=== PATIENT | male | born 1935 | race Caucasian/White ===

== ENCOUNTER 2018-08-25 13:46 | Outpatient (REF) | payer MEDICARE, OTHER, SELFPAY ==
[2018-08-25 20:42] LABS: Anion Gap 10.6 mmol/L (3-11); BUN 14 mg/dL (7-18); CO2 27.4 mmol/L (21.0-32.0); CREATININE 0.86 mg/dL (0.70-1.30); Calcium 9.5 mg/dL (8.5-10.1); Chloride 101 mmol/L (98-107); Glucose 126 mg/dL (70-100); Potassium 4.7 mmol/L (3.5-5.1); Sodium 139 mmol/L (136-145)
== END 2018-08-25 14:06 ==
LOC: NCHCN 13:46
PROVIDERS: Visit Provider Internal Medicine
DX: I25.10 Atherosclerotic heart disease of native coronary artery without angina pectoris (principal); Z01.818 Encounter for other preprocedural examination
CPT/HCPCS: 80048

== ENCOUNTER 2018-09-09 10:08 | Day surgery (SDC) | payer MEDICARE, OTHER, SELFPAY ==
--- NOTE | 2018-09-08 12:28 | POEE_ITS ---
History of Present Illness Chief Complaint: Progressive decreased vision, left eye Narrative: The patient is a 83-year-old male with history of progressive decreased vision in both eyes at both distance and near. On examination he was noted to have moderate bilateral nuclear and cortical cataracts with best corrected acuity of 20/40 OD, 20/40 OS, but with significant glare disability. The option of cataract surgery was offered to the patient and he wished to proceed. NOTE: The Chief Complaint, HPI, Past Medical History, Past Surgical History, Family History, Social History, Medications, and complete Ophthalmic Exam with detailed Assessment and Plan have already been documented in the patient's outpatient ophthalmic record and are not covered again in detail here. [facility] Medical History Cortical cataract of left eye (Acute) Nuclear sclerotic cataract of left eye (Acute) Social History Smoking/Tobacco Use Status: Former Tobacco Use Meds Home Medications Medication Instructions Recorded Confirmed Type famotidine 20 mg PO BID 01/19/13 03/15/15 History metformin [Fortamet] 500 mg PO BID 01/19/13 09/06/18 History clopidogrel [Plavix] 75 mg PO DAILY 01/30/13 03/15/15 History lisinopril 2.5 mg PO QAM 01/30/13 03/15/15 History metoprolol tartrate 50 mg PO BID 01/30/13 09/06/18 History nitroglycerin [Nitrostat] 0.4 mg SUBLINGUAL Q5 MIN PRN X3 03/16/15 09/06/18 Rx PRN tab aspirin 81 mg PO DAILY 09/06/18 09/06/18 History atorvastatin 20 mg PO DAILY 09/06/18 09/06/18 History finasteride 5 mg PO DAILY 09/06/18 09/06/18 History isosorbide mononitrate 30 mg PO DAILY 09/06/18 09/06/18 History Allergies Allergy/AdvReac Type Severity Reaction Status Date / Time No Known Allergies Allergy Unverified 03/15/15 22:31 Exam OCULAR EXAM:: Visual acuity at distance: Best corrected acuity is 20/40 right eye, 20/40 left eye Pupils: Pupils equal, round, and reactive without afferent pupillary defect IOP: 14 OU Extraocular Motility: Normal Pertinent Slit Lamp Findings: Significant for pupils dilating to 7 mm OU. 2+ nuclear with 2+ cortical cataract OU. Dilated Funduscopic Examination: Disc cupping is 0.2 OU with good color. The optic nerves have good perfusion and normal color. The retinal vasculature is normal without significant tortuosity or abnormality. The maculas are normal in appearance with normal contour and foveal reflex appropriate for age. The peripheral retina and vitreous are normal. BRIGHTNESS ACUITY TESTING (BAT):: Off left eye 20/40 Low: 20/60 Medium: 20/70 High: 20/70 Assessment and Plan (1) Nuclear sclerotic cataract of left eye: Current visit: No Status: Acute Assessment: Visually significant cataract, left eye. Plan: Cataract extraction with intraocular lens implantation, left eye (2) Cortical cataract of left eye: Current visit: No Status: Acute Assessment: Visually significant cataract, left eye. Plan: Cataract extraction with intraocular lens implantation, left eye Note: NOTE:: The details of the planned surgery, including the risks, indications, limitations,expectations,outcome and possible complications were explained to the patient. The patient understands the complications including, but not limited to: infection, hemorrhage, posterior dislocation of the lens or nuclear fragments which may require the intervention of a vitreoretinal surgeon, possible loss of the eye, or from anesthetic complications. The patient has been made aware of the option of not having surgery, that vision following surgery may not be equal to that prior to surgery, and that the planned surgery may not achieve the intended results. Following this discussion, which the patient appeared to understand, the patient wishes to proceed with cataract surgery with lens implantation of the affected eye to improve and maximize vision.
--- NOTE | 2018-09-09 07:25 | W.PM.DSUDISC ---
Discharge Plan Discharge Details Reason For Visit: CATARACT OS Attending Provider: Bharat Tucker Primary Care Provider: Kamron Capps Home Meds and New Rx's Prescriptions: No Action famotidine 20 MG tablet 20 mg PO BID RF: 0 metformin [Fortamet] 500 MG tablet extended release 24hr 500 mg PO BID RF: 0 lisinopril 2.5 MG tablet 2.5 mg PO QAM RF: 0 metoprolol tartrate 100 MG tablet 50 mg PO BID RF: 0 clopidogrel [Plavix] 75 MG tablet 75 mg PO DAILY RF: 0 nitroglycerin [Nitrostat] 0.4 MG tablet, sublingual 0.4 mg Sublingual Q5 MIN PRN X3 PRNRF: 0 atorvastatin 20 mg Tablet 20 mg PO DAILY RF: 0 isosorbide mononitrate 30 mg Tablet Extended Release 24 Hr 30 mg PO DAILY RF: 0 aspirin 81 mg Tablet,Chewable 81 mg PO DAILY RF: 0 finasteride 5 mg Tablet 5 mg PO DAILY RF: 0 Discharge Instructions Stand Alone Forms: Post-op Topical Cataract, Irene Medina (DSU) DS: Diagnosis Discharge Diagnosis (1) Nuclear sclerotic cataract of left eye: Status: Resolved (2) Cortical cataract of left eye: Status: Resolved (3) Status post cataract extraction and insertion of intraocular lens of left eye: Status: Chronic
--- NOTE | 2018-09-09 07:41 | W.PM.OP ---
Date of service: 09/09/18 Operative Note DATE OF PROCEDURE: 09/09/18 PRE-OP DIAGNOSIS: Cataract, left eye POST-OP DIAGNOSIS: same PROCEDURE: Cataract extraction using phacoemulsification with intraocular lens implant, left eye SURGEON: Bharat Tucker ANESTHESIA: MAC and local (sub-tenon's anesthetic infiltration) PATHOLOGY: none sent COMPLICATIONS: None Patient was transported to: same day Patient's condition: stable Implants: [employer] / [employer] Tecnis ZCB00 Indications: Progressive decreased vision due to cataract, left eye Procedure Description: CATARACT SURGERY OPERATIVE REPORT PREOPERATIVE DIAGNOSIS: Nuclear/cortical cataract,left eye POSTOPERATIVE DIAGNOSIS: Same OPERATION: Cataract extraction using phacoemulsification with posterior chamber intraocular lens implant, left eye. IOL: IOL Pig Lead Melter Helper/Model: [employer] / ANTONELLA Tecnis ZCB00 IOL Power: + 21.50 diopters IOL Serial Number: [id number] Optic Diameter: 6.0mm Haptic/Overall Diameter: 13.0mm PHACO INFO: [employer] Vision System with OZil and Active [employer]uidics Cumulative Dispersed Energy (CDE): 11.73 seconds SURGEON: Bharat Tucker MD, ALLI ANESTHESIA: Monitored Anesthesia Care (MAC), with local sub-tenon's anesthetic infiltration COMPLICATIONS: None SPECIMENS: None INDICATIONS FOR PROCEDURE: The patient is an 83-year-old male with history of progressive decreased vision in both eyes secondary to the development of bilateral nuclear and cortical cataract. The option of cataract surgery was offered to the patient and he wished to proceed. PROCEDURE: The correct surgical eye was identified and marked as the left eye and the pupil was dilated in the preoperative area using mydriatics, cycloplegics, and NSAIDS (except in aspirin allergic patients). The dilated pupil size was 7.0 mm. The patient elected to proceed without oral sedation. The patient was brought to the operating room where cardiopulmonary monitoring was instituted and surgical time-out was performed, confirming the correct operative eye and IOL power. Topical anesthesia was administered and ophthalmic povidone-iodine 5% was instilled into the conjunctival fornices. Lidocaine gel was applied to the cornea and the erik-ocular area was prepped with Betadine 10% solution and draped in the usual sterile fashion for intraocular surgery. Steri-strips were used to cover the lashes and lid margins and an adhesive eye drape was placed. Care was taken to isolate the lashes and lid margins under the Steri-strips and adhesive eye drape. A lid speculum was placed between the lids of the operative eye and the Malissa-Zaid operating microscope was maneuvered into position. Marissa scissors were then used to make a conjunctival buttonhole approximately 6mm posterior to the limbus in the inferonasal quadrant. Blunt dissection was carried out to expose bare sclera, and a blunt-tipped sub-tenon?s anesthesia cannula was introduced and passed posteriorly along the globe where non-preserved plain lidocaine was injected into posterior sub-Tenon?s space. A sideport knife was used to make a paracentesis port at the 12:00 postion and the anterior chamber was filled with Healon GV. A 2.4mm keratome knife was used to create a half-thickness groove at the limbus and then to construct a three-plane near-clear corneal tunnel extending 2.0mm into clear cornea at the 3:00 position. A flap was raised on the anterior capsule and capsulorhexis forceps were used to complete a continuous curvilinear capsulorhexis of 5.0 mm. Balanced salt solution was then used to perform cortical cleaving hydrodissection and nuclear hydrodelineation until the lens could be freely rotated within the capsular bag. The lens nucleus was then disassembled and removed within the capsular bag and iris plane using phacoemulsification. Residual cortical material was removed using the 45-degree angled silicone I/A tip with 0.3mm port. The posterior capsule was carefully polished to remove as much residual lens epithelial cells as safely possible. The capsular bag was then inflated and the anterior chamber deepened with viscoelastic. The lens implant described above was inserted into the capsular bag using the ANTONELLA [place] Injector. A Kuglen hook was used to dial the IOL into position. Residual viscoelastic was then removed first from posterior to the IOL, then from the anterior chamber using the I/A handpiece. The lens implant was noted to center nicely within the capsular bag. The incisions were stromally hydrated, and the anterior chamber was reformed using BSS. Then 0.4cc of moxifloxacin 1.5mg/ml were injected into the capsular bag and anterior chamber. The incisions were checked with a Weck spear and found to be secure. Several drops of ophthalmic povidone-iodine 5% were then applied to the eye followed by two drops of Imprimis combination moxifloxacin/dexamethasone solution. The drapes were removed and a clear plastic protective eye shield was placed over the eye. The patient was then returned to Same Day Surgery in stable condition.
[2018-09-09 11:16] VITALS: BP 137/71; PULSE 72; RESP 20; TEMP 35; O2SAT 99
[2018-09-09] MEDS: Lidocaine 2% Jelly 6 ML SYR (13:27)
[2018-09-09] MEDS: Povidone-Iodine Ophth 30 ML BTL (13:31)
[2018-09-09] MEDS: Lidocaine 1% Pres-Free 5 ML VIAL (13:31)
[2018-09-09] MEDS: Balanced Salt Soln.-PLUS 500 ML BAG (13:31)
== END 2018-09-09 13:15 | disposition home or self-care (01) ==
LOC: SUR 10:09
PROVIDERS: PCP Internal Medicine; Visit Provider Ophthalmology
PROC: (CPT 66984; principal; 2018-09-09 13:00)
DX: H25.812 Combined forms of age-related cataract, left eye (principal); E11.9 Type 2 diabetes mellitus without complications; Z79.84 Long term (current) use of oral hypoglycemic drugs; K21.9 Gastro-esophageal reflux disease without esophagitis
CPT/HCPCS: 66984; V2632

== ENCOUNTER 2018-09-23 08:59 | Day surgery (SDC) | payer MEDICARE, OTHER, SELFPAY ==
--- NOTE | 2018-09-22 13:11 | W.PIPPEYE ---
History of Present Illness Chief Complaint: Progressive decreased vision, right eye Narrative: The patient is an 83-year-old male with history of diminished visual acuity and both eyes at both distance and near. On examination he was noted to have moderate bilateral nuclear and cortical cataracts with best corrected visual acuity of 20/40 OU and significant glare disability. He underwent cataract surgery in the left eye on 09/09/18, and now has best corrected vision of 20/20 in the left eye. He now presents for cataract surgery in the right eye. NOTE: The Chief Complaint, HPI, Past Medical History, Past Surgical History, Family History, Social History, Medications, and complete Ophthalmic Exam with detailed Assessment and Plan have already been documented in the patient's outpatient ophthalmic record and are not covered again in detail here. [facility] Medical History Cortical cataract of right eye (Acute) Nuclear sclerotic cataract of right eye (Acute) Cortical cataract of left eye (Resolved) Nuclear sclerotic cataract of left eye (Resolved) Social History Smoking/Tobacco Use Status: Former Tobacco Use Surgical History Status post cataract extraction and insertion of intraocular lens of left eye (Chronic 09/09/18) Meds Home Medications Medication Instructions Recorded Confirmed Type famotidine 20 mg PO BID 01/19/13 03/15/15 History metformin [Fortamet] 500 mg PO BID 01/19/13 09/09/18 History clopidogrel [Plavix] 75 mg PO DAILY 01/30/13 03/15/15 History lisinopril 2.5 mg PO QAM 01/30/13 03/15/15 History metoprolol tartrate 50 mg PO BID 01/30/13 09/09/18 History nitroglycerin [Nitrostat] 0.4 mg SUBLINGUAL Q5 MIN PRN X3 03/16/15 09/09/18 Rx PRN tab aspirin 81 mg PO DAILY 09/06/18 09/09/18 History atorvastatin 20 mg PO DAILY 09/06/18 09/09/18 History finasteride 5 mg PO DAILY 09/06/18 09/09/18 History isosorbide mononitrate 30 mg PO DAILY 09/06/18 09/09/18 History Allergies Allergy/AdvReac Type Severity Reaction Status Date / Time citalopram [From Celexa] Allergy Mild Verified 09/09/18 11:12 Sulfa (Sulfonamide Allergy Mild Verified 09/09/18 11:12 Antibiotics) Exam OCULAR EXAM:: Visual acuity at distance: Best corrected to 20/40 right eye, 20/20 left eye Pupils: Pupils equal, round, and reactive without afferent pupillary defect IOP: 14 OU Extraocular Motility: Normal Pertinent Slit Lamp Findings: Significant for pupils dilating to 7 mm OU. 2+ nuclear/cortical cataract, right eye. Well-positioned PCIOL, left eye with clear posterior capsule. Dilated Funduscopic Examination: Disc cupping is 0.2 OU with good color. The optic nerves have good perfusion and normal color. The retinal vasculature is normal without significant tortuosity or abnormality. The maculas are normal in appearance with normal contour and foveal reflex appropriate for age. The peripheral retina and vitreous are normal. BRIGHTNESS ACUITY TESTING (BAT):: Off right eye 20/40 Low: 20/60 Medium: 20/70 High: 20/100 Assessment and Plan (1) Nuclear sclerotic cataract of right eye: Current visit: No Status: Acute Assessment: Visually significant cataract, right eye. Plan: Cataract extraction with intraocular lens implantation, right eye (2) Cortical cataract of right eye: Current visit: No Status: Acute Assessment: Visually significant cataract, right eye. Plan: Cataract extraction with intraocular lens implantation, right eye Note: NOTE:: The details of the planned surgery, including the risks, indications,limitations,expectations,outcome and possible complications were explained to the patient. The patient understands the complications including, but not limited to: infection, hemorrhage, posterior dislocation of the lens or nuclear fragments which may require the intervention of a vitreoretinal surgeon, possible loss of the eye, or from anesthetic complications. The patient has been made aware of the option of not having surgery, that vision following surgery may not be equal to that prior to surgery, and that the planned surgery may not achieve the intended results. Following this discussion, which the patient appeared to understand, the patient wishes to proceed with cataract surgery with lens implantation of the affected eye to improve and maximize vision.
--- NOTE | 2018-09-22 13:16 | POEE_ITS ---
History of Present Illness Chief Complaint: Progressive decreased vision, right eye Narrative: The patient is an 83-year-old male with history of diminished visual acuity and both eyes at both distance and near. On examination he was noted to have moderate bilateral nuclear and cortical cataracts with best corrected visual acuity of 20/40 OU and significant glare disability. He underwent cataract surgery in the left eye on 09/09/18, and now has best corrected vision of 20/20 in the left eye. He now presents for cataract surgery in the right eye. NOTE: The Chief Complaint, HPI, Past Medical History, Past Surgical History, Family History, Social History, Medications, and complete Ophthalmic Exam with detailed Assessment and Plan have already been documented in the patient's outpatient ophthalmic record and are not covered again in detail here. [facility] Medical History Cortical cataract of right eye (Acute) Nuclear sclerotic cataract of right eye (Acute) Cortical cataract of left eye (Resolved) Nuclear sclerotic cataract of left eye (Resolved) Social History Smoking/Tobacco Use Status: Former Tobacco Use Surgical History Status post cataract extraction and insertion of intraocular lens of left eye ( Chronic 09/09/18) Meds Home Medications Medication Instructions Recorded Confirmed Type famotidine 20 mg PO BID 01/19/13 03/15/15 History metformin [Fortamet] 500 mg PO BID 01/19/13 09/09/18 History clopidogrel [Plavix] 75 mg PO DAILY 01/30/13 03/15/15 History lisinopril 2.5 mg PO QAM 01/30/13 03/15/15 History metoprolol tartrate 50 mg PO BID 01/30/13 09/09/18 History nitroglycerin [Nitrostat] 0.4 mg SUBLINGUAL Q5 MIN PRN X3 03/16/15 09/09/18 Rx PRN tab aspirin 81 mg PO DAILY 09/06/18 09/09/18 History atorvastatin 20 mg PO DAILY 09/06/18 09/09/18 History finasteride 5 mg PO DAILY 09/06/18 09/09/18 History isosorbide mononitrate 30 mg PO DAILY 09/06/18 09/09/18 History Allergies Allergy/AdvReac Type Severity Reaction Status Date / Time citalopram [From Celexa] Allergy Mild Verified 09/09/18 11:12 Sulfa (Sulfonamide Allergy Mild Verified 09/09/18 11:12 Antibiotics) Exam OCULAR EXAM:: Visual acuity at distance: Best corrected to 20/40 right eye, 20/ 20 left eye Pupils: Pupils equal, round, and reactive without afferent pupillary defect IOP: 14 OU Extraocular Motility: Normal Pertinent Slit Lamp Findings: Significant for pupils dilating to 7 mm OU. 2+ nuclear/cortical cataract, right eye. Well-positioned PCIOL, left eye with clear posterior capsule. Dilated Funduscopic Examination: Disc cupping is 0.2 OU with good color. The optic nerves have good perfusion and normal color. The retinal vasculature is normal without significant tortuosity or abnormality. The maculas are normal in appearance with normal contour and foveal reflex appropriate for age. The peripheral retina and vitreous are normal. BRIGHTNESS ACUITY TESTING (BAT):: Off right eye 20/40 Low: 20/60 Medium: 20/70 High: 20/100 Assessment and Plan (1) Nuclear sclerotic cataract of right eye: Current visit: No Status: Acute Assessment: Visually significant cataract, right eye. Plan: Cataract extraction with intraocular lens implantation, right eye (2) Cortical cataract of right eye: Current visit: No Status: Acute Assessment: Visually significant cataract, right eye. Plan: Cataract extraction with intraocular lens implantation, right eye Note: NOTE:: The details of the planned surgery, including the risks, indications, limitations,expectations,outcome and possible complications were explained to the patient. The patient understands the complications including, but not limited to: infection, hemorrhage, posterior dislocation of the lens or nuclear fragments which may require the intervention of a vitreoretinal surgeon, possible loss of the eye, or from anesthetic complications. The patient has been made aware of the option of not having surgery, that vision following surgery may not be equal to that prior to surgery, and that the planned surgery may not achieve the intended results. Following this discussion, which the patient appeared to understand, the patient wishes to proceed with cataract surgery with lens implantation of the affected eye to improve and maximize vision.
[2018-09-23 09:12] VITALS: BP 120/68; PULSE 69; RESP 16; TEMP 36.2; O2SAT 97
[2018-09-23] MEDS: Tetracaine 0.5% 4 ML BTL OD ×4 (09:36→10:17)
[2018-09-23] MEDS: Tropicam./Phenyleph. (1/2.5%) 5 ML BTL ×3 (09:37→09:50)
[2018-09-23] MEDS: Lidocaine 2% Jelly 6 ML SYR (10:17)
[2018-09-23] MEDS: Lidocaine 1% Pres-Free 5 ML VIAL (10:21)
[2018-09-23] MEDS: Balanced Salt Soln.-PLUS 500 ML BAG (10:21)
[2018-09-23] MEDS: Povidone-Iodine Ophth 30 ML BTL (10:38)
--- NOTE | 2018-09-23 10:44 | W.PM.DSUDISC ---
Discharge Plan Discharge Details Reason For Visit: CATARACT OD Attending Provider: Bharat Tucker Primary Care Provider: Kamron Capps Home Meds and New Rx's Prescriptions: No Action famotidine 20 MG tablet 20 mg PO BID RF: 0 metformin [Fortamet] 500 MG tablet extended release 24hr 500 mg PO BID RF: 0 lisinopril 2.5 MG tablet 2.5 mg PO QAM RF: 0 metoprolol tartrate 100 MG tablet 50 mg PO BID RF: 0 clopidogrel [Plavix] 75 MG tablet 75 mg PO DAILY RF: 0 nitroglycerin [Nitrostat] 0.4 MG tablet, sublingual 0.4 mg Sublingual Q5 MIN PRN X3 PRNRF: 0 atorvastatin 20 mg Tablet 20 mg PO DAILY RF: 0 isosorbide mononitrate 30 mg Tablet Extended Release 24 Hr 30 mg PO DAILY RF: 0 aspirin 81 mg Tablet,Chewable 81 mg PO DAILY RF: 0 finasteride 5 mg Tablet 5 mg PO DAILY RF: 0 Discharge Instructions Stand Alone Forms: Post-op Topical Cataract, Irene Medina (DSU) DS: Diagnosis Discharge Diagnosis (1) Nuclear sclerotic cataract of right eye: Status: Resolved (2) Cortical cataract of right eye: Status: Resolved (3) Status post cataract extraction and insertion of intraocular lens of right eye: Status: Acute
--- NOTE | 2018-09-23 10:45 | W.PM.OP ---
Date of service: 09/23/18 Time of Service: 10:45 Operative Note DATE OF PROCEDURE: 09/23/18 PRE-OP DIAGNOSIS: Cataract, right eye POST-OP DIAGNOSIS: same SURGEON: Bharat Tucker ANESTHESIA: MAC and local (sub-tenon's anesthetic infiltration) PATHOLOGY: none sent COMPLICATIONS: None Patient was transported to: same day Patient's condition: stable Implants: Torrey [employer] / [employer] Tecnis ZCB00 Indications: Progressive decreased vision due to cataract, right eye Procedure Description: CATARACT SURGERY OPERATIVE REPORT PREOPERATIVE DIAGNOSIS: Nuclear/cortical cataract, right eye POSTOPERATIVE DIAGNOSIS: Same OPERATION: Cataract extraction using phacoemulsification with posterior chamber intraocular lens implant, right eye. 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 The option of cataract surgery was offered to the patient and he wished to proceed. He has already undergone cataract surgery in his left eye and is doing well postoperatively. He now presents for cataract surgery in the right eye PROCEDURE: The correct surgical eye was identified and marked as the right eye and the pupil was dilated in the preoperative area using mydriatics and cycloplegics. The dilated pupil size was 7.0 mm. He elected to proceed with surgery with no oral sedation. The patient was brought to the operating room where cardiopulmonary monitoring was instituted and surgical time-out was performed, confirming the correct operative eye and IOL power. Topical anesthesia was administered and ophthalmic povidone-iodine 5% was instilled into the conjunctival fornices. Lidocaine gel was applied to the cornea and the erik-ocular area was prepped with Betadine 10% solution and draped in the usual sterile fashion for intraocular surgery. Steri-strips were used to cover the lashes and lid margins and an adhesive eye drape was placed. Care was taken to isolate the lashes and lid margins under the Steri-strips and adhesive eye drape. A lid speculum was placed between the lids of the operative eye and the Malissa-Zaid operating microscope was maneuvered into position. Marissa scissors were then used to make a conjunctival buttonhole approximately 6mm posterior to the limbus in the inferonasal quadrant. Blunt dissection was carried out to expose bare sclera, and a blunt-tipped sub-tenon?s anesthesia cannula was introduced and passed posteriorly along the globe where non-preserved plain lidocaine was injected into posterior sub-Tenon?s space. A sideport knife was used to make a paracentesis port at the 7:00 postion and the anterior chamber was filled with Healon GV. A 2.4mm keratome knife was used to create a half-thickness groove at the limbus and then to construct a three-plane near-clear corneal tunnel extending 2.0mm into clear cornea at the 10:00 position. A flap was raised on the anterior capsule and capsulorhexis forceps were used to complete a continuous curvilinear capsulorhexis of five-point mm. Balanced salt solution was then used to perform cortical cleaving hydrodissection and nuclear hydrodelineation until the lens could be freely rotated within the capsular bag. The lens nucleus was then disassembled and removed within the capsular bag and iris plane using phacoemulsification. Residual cortical material was removed using the 45-degree angled silicone I/A tip with 0.3mm port. The posterior capsule was carefully polished to remove as much residual lens epithelial cells as safely possible. The capsular bag was then inflated and the anterior chamber deepened with viscoelastic. The lens implant described above was inserted into the capsular bag using the ANTONELLA [place] Injector. A Kuglen hook was used to dial the IOL into position. Residual viscoelastic was then removed first from posterior to the IOL, then from the anterior chamber using the I/A handpiece. The lens implant was noted to center nicely within the capsular bag. The incisions were stromally hydrated, and the anterior chamber was reformed using BSS. Then 0.4cc of moxifloxacin 1.5mg/ml were injected into the capsular bag and anterior chamber. The incisions were checked with a Weck spear and found to be secure. Several drops of ophthalmic povidone-iodine 5% were then applied to the eye followed by two drops of Imprimis combination moxifloxacin/dexamethasone solution. The drapes were removed and a clear plastic protective eye shield was placed over the eye. The patient was then returned to Same Day Surgery in stable condition.
--- NOTE | 2018-09-23 10:48 | ROE_ITS ---
Date of service: 09/23/18 Time of Service: 10:45 Operative Note DATE OF PROCEDURE: 09/23/18 PRE-OP DIAGNOSIS: Cataract, right eye POST-OP DIAGNOSIS: same SURGEON: Bharat Tucker ANESTHESIA: MAC and local (sub-tenon's anesthetic infiltration) PATHOLOGY: none sent COMPLICATIONS: None Patient was transported to: same day Patient's condition: stable Implants: Torrey and [employer] / [employer] Tecnis ZCB00 Indications: Progressive decreased vision due to cataract, right eye Procedure Description: CATARACT SURGERY OPERATIVE REPORT PREOPERATIVE DIAGNOSIS: Nuclear/cortical cataract, right eye POSTOPERATIVE DIAGNOSIS: Same OPERATION: Cataract extraction using phacoemulsification with posterior chamber intraocular lens implant, right eye. 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 The option of cataract surgery was offered to the patient and he wished to proceed. He has already undergone cataract surgery in his left eye and is doing well postoperatively. He now presents for cataract surgery in the right eye PROCEDURE: The correct surgical eye was identified and marked as the right eye and the pupil was dilated in the preoperative area using mydriatics and cycloplegics. The dilated pupil size was 7.0 mm. He elected to proceed with surgery with no oral sedation. The patient was brought to the operating room where cardiopulmonary monitoring was instituted and surgical time-out was performed, confirming the correct operative eye and IOL power. Topical anesthesia was administered and ophthalmic povidone-iodine 5% was instilled into the conjunctival fornices. Lidocaine gel was applied to the cornea and the erik-ocular area was prepped with Betadine 10% solution and draped in the usual sterile fashion for intraocular surgery. Steri-strips were used to cover the lashes and lid margins and an adhesive eye drape was placed. Care was taken to isolate the lashes and lid margins under the Steri-strips and adhesive eye drape. A lid speculum was placed between the lids of the operative eye and the Malissa-Zaid operating microscope was maneuvered into position. Marissa scissors were then used to make a conjunctival buttonhole approximately 6mm posterior to the limbus in the inferonasal quadrant. Blunt dissection was carried out to expose bare sclera, and a blunt-tipped sub-tenon? s anesthesia cannula was introduced and passed posteriorly along the globe where non-preserved plain lidocaine was injected into posterior sub-Tenon?s space. A sideport knife was used to make a paracentesis port at the 7:00 postion and the anterior chamber was filled with Healon GV. A 2.4mm keratome knife was used to create a half-thickness groove at the limbus and then to construct a three-plane near-clear corneal tunnel extending 2.0mm into clear cornea at the 10:00 position. A flap was raised on the anterior capsule and capsulorhexis forceps were used to complete a continuous curvilinear capsulorhexis of five-point mm. Balanced salt solution was then used to perform cortical cleaving hydrodissection and nuclear hydrodelineation until the lens could be freely rotated within the capsular bag. The lens nucleus was then disassembled and removed within the capsular bag and iris plane using phacoemulsification. Residual cortical material was removed using the 45-degree angled silicone I/A tip with 0.3mm port. The posterior capsule was carefully polished to remove as much residual lens epithelial cells as safely possible. The capsular bag was then inflated and the anterior chamber deepened with viscoelastic. The lens implant described above was inserted into the capsular bag using the ANTONELLA [place] Injector. A Kuglen hook was used to dial the IOL into position. Residual viscoelastic was then removed first from posterior to the IOL, then from the anterior chamber using the I/A handpiece. The lens implant was noted to center nicely within the capsular bag. The incisions were stromally hydrated , and the anterior chamber was reformed using BSS. Then 0.4cc of moxifloxacin 1.5mg/ml were injected into the capsular bag and anterior chamber. The incisions were checked with a Weck spear and found to be secure. Several drops of ophthalmic povidone-iodine 5% were then applied to the eye followed by two drops of Imprimis combination moxifloxacin/dexamethasone solution. The drapes were removed and a clear plastic protective eye shield was placed over the eye. The patient was then returned to Same Day Surgery in stable condition.
[2018-09-23 12:11] VITALS: BP 114/60; PULSE 65; RESP 18; TEMP 36.7; O2SAT 98
== END 2018-09-23 11:15 | disposition home or self-care (01) ==
LOC: SUR 08:59
PROVIDERS: PCP Internal Medicine; Visit Provider Ophthalmology
PROC: (CPT 66984; principal; 2018-09-23 11:30)
DX: H25.811 Combined forms of age-related cataract, right eye (principal); Z98.42 Cataract extraction status, left eye; Z96.1 Presence of intraocular lens; E11.9 Type 2 diabetes mellitus without complications; Z79.84 Long term (current) use of oral hypoglycemic drugs; K21.9 Gastro-esophageal reflux disease without esophagitis
CPT/HCPCS: 66984; V2632

== ENCOUNTER 2019-08-28 15:53 | Outpatient (REF) | payer MEDICARE, OTHER, SELFPAY ==
[2019-08-28 22:18] LABS: Anion Gap 11.6 mmol/L (3-11); BUN 21 mg/dL (7-18); CO2 27.4 mmol/L (21.0-32.0); CREATININE 1.05 mg/dL (0.70-1.30); Calcium 9.6 mg/dL (8.5-10.1); Chloride 103 mmol/L (98-107); Glucose 108 mg/dL (70-100); Potassium 4.6 mmol/L (3.5-5.1); Sodium 142 mmol/L (136-145)
== END 2019-08-28 16:13 ==
LOC: NCHCN 15:53
PROVIDERS: PCP Internal Medicine; Visit Provider Internal Medicine
DX: I25.10 Atherosclerotic heart disease of native coronary artery without angina pectoris (principal)
CPT/HCPCS: 80048

== ENCOUNTER 2020-07-18 11:16 | Outpatient (REF) | payer MEDICARE, OTHER, SELFPAY ==
[2020-07-18 20:47] LABS: BUN 19 mg/dL (7-18); CREATININE 1.22 mg/dL (0.70-1.30); Estimated GFR 56.59 (mL/min/1.73m2)
== END 2020-07-18 11:36 ==
LOC: NCHCN 11:16
PROVIDERS: PCP Internal Medicine; Visit Provider Internal Medicine
DX: E11.9 Type 2 diabetes mellitus without complications (principal); Z13.89 Encounter for screening for other disorder
CPT/HCPCS: 84520; 82565

== ENCOUNTER 2021-07-24 14:16 | Outpatient (REF) | payer MEDICARE, OTHER, SELFPAY ==
[2021-07-24 13:58] LABS: Anion Gap 11.8 mmol/L (3-11); BUN 14 mg/dL (7-18); CO2 25.2 mmol/L (21.0-32.0); CREATININE 1.1 mg/dL (0.70-1.30); Calcium 9.2 mg/dL (8.5-10.1); Chloride 105 mmol/L (98-107); Glucose 86 mg/dL (74-106); Potassium 4.5 mmol/L (3.5-5.1); Sodium 142 mmol/L (136-145)
== END 2021-07-24 14:17 | disposition home or self-care (01) ==
LOC: NCHCN 14:16
PROVIDERS: PCP Internal Medicine; Referring Provider Internal Medicine; Visit Provider Internal Medicine
DX: E11.9 Type 2 diabetes mellitus without complications (principal); F32.9 Major depressive disorder, single episode, unspecified
CPT/HCPCS: 80048

== ENCOUNTER 2021-09-19 11:42 | Emergency (ER) | payer MEDICARE, OTHER, SELFPAY ==
[2021-09-19] VITALS (48 sets, daily range): BP systolic 115–157; BP diastolic 45–110; PULSE 58–77; RESP 11–27; O2SAT 92–99
--- NOTE | 2021-09-19 11:45 | RT.EKG_ITS ---
APPROVED REPORT Exam: Resting ECG Reason for Exam: dizziness Patient Location: E HR:66 bpm ECG Measurements Heart Rate 66 AXIS CO 51 P 0 QRSd 167 QRS -52 QT 481 T 117 QTc 505 Conclusion Atrial-ventricular dual-paced complexes...other complexes also detected AV paced rhythm with frequent comanche complex, normal axis, no STEMI, nondiagnostic EKG
--- NOTE | 2021-09-19 12:15 | DI.CT_ITS ---
Exam(s) CT HEAD WO EXAM: CT HEAD WO CLINICAL HISTORY: headache. TECHNIQUE: Imaging Protocol: Axial computed tomography images with coronal and sagittal reformatted images were created and reviewed COMPARISON: CT HEAD WITHOUT CONTRAST from 11/19/2015 FINDINGS: The ventricular system is normal in appearance. No evidence of acute intracranial hemorrhage, mass effect, or midline shift. The orbital structures are unremarkable. The temporal bone structures appear intact. Calvarium: Normal. Visualized Paranasal sinuses/Mastoids: Clear. IMPRESSION: No evidence of acute intracranial process. RADIATION DOSE DELIVERED: 840.86mGy.cm Total DLP 840.86mGy.cm Total DLP CTDIvol DATA REPOSITORY: All CT scans at this facility are submitted to the National Radiology Data Registry (NRDR) Dose Index Registry (DIR) with the [employer] (A[employer]). RADIATION OPTIMIZATION: All CT scans at this facility use at least one of these dose optimization te chniques: automated exposure control; mA and/or kV adjustment per patient size (includes targeted exa ms where dose is matched to clinical indication); or iterative reconstruction.
[2021-09-19] MEDS: Normal Saline 500 ML IV ×2 (12:46→15:39)
[2021-09-19 12:53] LABS: Abs Immature Grans 0.05 10^3/uL (0.0-0.06); Absolute Basophil Count 0.07 10^3/uL (0.0-0.2); Absolute Eosinophil Count 0.11 10^3/uL (0.0-0.7); Absolute Lymphocyte Count 1.63 10^3/uL (1.2-3.4); Absolute Monocyte Count 0.38 10^3/uL (0.1-0.8); Absolute Neutrophil Count 7.77 10^3/uL (1.2-6.7); Basophils % 0.7; Eosinophils % 1.1; HCT 41.1 % (40.0-50.0); HGB 13.6 g/dL (13.5-17.5); Immature Grans % 0.5; Lymphocytes % 16.3; MCH 29.6 pg (27.0-33.0); MCHC 33.1 % (32.0-36.0); MCV 89.3 fL (80-95); MPV 11.5 fL (8.0-11.0); Monocytes % 3.8; Neutrophils % 77.6; Nucleated RBC 0 %; Platelet Count 208 10^3/uL (130-400); RDW 13.3 % (11.8-14.1); WBC 10.01 10^3/uL (4.4-10.8)
[2021-09-19 13:24] LABS: ALT 17 U/L (16-63); AST 18 U/L (15-37); Albumin 4.1 g/dL (3.4-5.0); Alkaline Phosphatase 66 U/L (46-116); Anion Gap 9.6 mmol/L (3-11); BUN 19 mg/dL (7-18); Bilirubin, Total 1.2 mg/dL (0.2-1.0); CO2 27.4 mmol/L (21.0-32.0); CREATININE 1.1 mg/dL (0.70-1.30); Calcium 9.4 mg/dL (8.5-10.1); Chloride 103 mmol/L (98-107); Glucose 148 mg/dL (74-106); Potassium 3.9 mmol/L (3.5-5.1); Sodium 140 mmol/L (136-145); Total Protein 7.6 g/dL (6.4-8.2)
--- NOTE | 2021-09-19 15:00 | DI.CT_ITS ---
Exam(s) CT BRAIN NECK CTA EXAM: CT BRAIN NECK CTA CLINICAL HISTORY: headache. TECHNIQUE: Imaging Protocol: Axial CT angiography was performed with multi-slice acquisition and mu lti-planar and/or 3D reconstructions. CONTRAST MATERIAL: Intravenous: Omnipaque 350 Contrast volume:85 mL COMPARISON: CT HEAD WITHOUT CONTRAST from 11/19/2015 CT HEAD WITHOUT CONTRAST from 11/19/2015 FINDINGS: CT Head W/O and W: Ventricles and Extra axial spaces: Normal in size and morphology for the patient's age. Hemorrhage: None. Cerebral parenchyma: No acute territorial infarct. There are areas of decreased attenuation in the w kevin matter consistent with small vessel ischemic disease. Midline shift: None. Brainstem/Cerebellum: Normal. Calvarium: Normal. Visualized Paranasal sinuses/Mastoids: Clear. Soft Tissues: Unremarkable. Enhancement: Unremarkable. CTA Neck W: Common Carotid: Right: No dissection, occlusion or significant stenosis. Atherosclerosis distally. Left: No dissection, occlusion or significant stenosis. Atherosclerosis distally. External Carotid: Right: No occlusion or significant stenosis. Proximal atherosclerosis. Left: No occlusion or significant stenosis. Proximal atherosclerosis. Internal Carotid: Right: No dissection, occlusion or significant stenosis. Mild proximal atherosclerosis. Left: No dissection or occlusion. Proximal atherosclerosis with mild resultant stenosis. Vertebral Artery: Right: No dissection, occlusion or significant stenosis. Left: No dissection, occlusion or significant stenosis. Mild atherosclerosis proximally. Lung Apices: Normal. Coronary artery calcification. Atherosclerosis of the thoracic aorta. Bones: Within normal limits for the patient's age. Soft Tissues: Normal. Thyroid gland: Unremarkable. CTA Brain W: Internal Carotid Arteries: Atherosclerosis throughout but no significant stenosis. No evidence of an eurysm or occlusion. Anterior Cerebral Arteries: Right: No aneurysm, occlusion or significant stenosis. Left: No aneurysm, occlusion or significant stenosis. Middle Cerebral Arteries: Right: No aneurysm, occlusion or significant stenosis. Left: No aneurysm, occlusion or significant stenosis. Posterior cerebral Arteries: Right: No aneurysm, occlusion or significant stenosis. Left: No aneurysm, occlusion or significant stenosis. The left posterior cerebral artery arises from the PCOM which is a normal variant. Vertebral Arteries: Right: No aneurysm, occlusion or significant stenosis. Left: No aneurysm, occlusion or significant stenosis. Basilar Artery: No aneurysm, occlusion or significant stenosis. IMPRESSION: 1. No large vessel occlusion or significant stenosis on the CT angiography of the head. 2. No acute intracranial process. 3. No occlusion or significant stenosis on the CT angiography of the neck. RADIATION DOSE DELIVERED: 2,316.46mGy.cm Total DLP DATA REPOSITORY: All CT scans at this facility are submitted to the National Radiology Data Registry (NRDR) Dose Index Registry (DIR) with the [employer] (ACR). RADIATION OPTIMIZATION: All CT scans at this facility use at least one of these dose optimization te chniques: automated exposure control; mA and/or kV adjustment per patient size (includes targeted exa ms where dose is matched to clinical indication); or iterative reconstruction.
[2021-09-19] MEDS: Acetaminophen 500 MG TAB 1000 MG PO (15:38)
--- NOTE | 2021-09-19 16:26 | ED.GENADUL_ITS ---
Discharge Plan Disposition Patient Disposition: HOME Condition: Improving Discharge Details Clinical Impression: Cephalalgia Primary Care Provider: Kamron Capps ED Provider: Justin Estes Home Meds and New Rx's Prescriptions: Continued nitroglycerin [Nitrostat] 0.4 MG tablet, sublingual 0.4 mg Sublingual Q5 MIN PRN X3 PRNRF: 0 atorvastatin 20 mg Tablet 20 mg PO HS RF: 0 isosorbide mononitrate 30 mg Tablet Extended Release 24 Hr 30 mg PO DAILY RF: 0 finasteride 5 mg Tablet 5 mg PO HS RF: 0 aspirin 81 mg Tablet,Delayed Release (Dr/Ec) 81 mg PO DAILY RF: 0 metoprolol tartrate 50 mg tablet 50 mg PO BID RF: 0 celecoxib [Celebrex] 100 mg Capsule 100 mg PO BID PRN (Reason: Pain) RF: 0 metformin 500 mg tablet 500 mg PO BID RF: 0 Discharge Instructions Instructions: General Headache (ED) Additional Instructions: Home to rest this evening. [place] amounts of fluids to maintain hydration. Return for any acute concerns. Discharge Data Discharge Date/Time-TO BE ENTERED AT DEPARTURE: 09/19/21 19:02 Medical Decision Making <Ludmila Amaya MD - Last Filed: 10/05/21 21:26> Sarbjit Sethi is an 86 y/o man with h/o CAD s/p CABG x3, DM who presented to the ED with headache that began this am, vomiting, now improving somewhat. On exam Pt is well and non-toxic appearing. Neuro exam is benign. Concern for migraine, dehydration, other benign headache, possible metabloic/lyte derangement, possible SAH, other. Doubt meningitis. Exam/hx at this time not c/w glaucoma, sepsis, acute coronary syndrome, CVA. Plan for IV placement, CT head, screening labs, IVF hydration, tylenol. Plan for CTA brain is CT head neg, labs okay. EKG obtained, non-diagnostic. CT head neg for acute process per radiology. Labs reviewed, Cr 1.1. Plan for CTA. I discussed with Pt and his daughter LP in case of negative CTA to further r/o SAH. Both Pt and his daughter objected to this plan, stating that Pt would not want to go through that. I had a lengthy discussion with Pt and his daughter re: risks of not performing LP is CTA non-diagnostic including , permanent disability. Pt and his daughter verbalize understanding of risks, Pt states he would not LP under any circumstance, daughter agrees. Pt reports that he feels improved after meds. Plan for CTA, continue IVF hydration. Pt signed out to Dr. Estes at time of shift change with CTA, reassessment pending. Medical Records Medical records reviewed: Yes I reviewed the patient's medical records. Lab Data Lab results reviewed: Yes I reviewed the patient's lab results. Labs: Laboratory Tests Range/Units 09/19/21 09/19/21 09/19/21 12:15 12:15 16:55 WBC (4.4-10.8) 10^3/uL 10.01 RBC (4.36-5.78) 10^6/uL 4.60 Hgb (13.5-17.5) g/dL 13.6 Hct (40.0-50.0) % 41.1 MCV (80-95) fL 89.3 MCH (27.0-33.0) pg 29.6 MCHC (32.0-36.0) % 33.1 RDW (11.8-14.1) % 13.3 Plt Count (130-400) 10^3/uL 208 MPV (8.0-11.0) fL 11.5 H Immature Gran % 0.5 Neutrophils % 77.6 Lymphocytes % 16.3 Monocytes % 3.8 Eosinophils % 1.1 Basophils % 0.7 Nucleated RBC % % 0 Absolute Neutrophils (1.2-6.7) 10^3/uL 7.77 H Absolute Lymphocytes (1.2-3.4) 10^3/uL 1.63 Absolute Monocytes (0.1-0.8) 10^3/uL 0.38 Absolute Eosinophils (0.0-0.7) 10^3/uL 0.11 Absolute Basophils (0.0-0.2) 10^3/uL 0.07 Sodium (136-145) mmol/L 140 Potassium (3.5-5.1) mmol/L 3.9 Chloride (98-107) mmol/L 103 Carbon Dioxide (21.0-32.0) mmol/L 27.4 Anion Gap (3-11) mmol/L 9.6 BUN (7-18) mg/dL 19 H Creatinine (0.70-1.30) mg/dL 1.1 Estimated GFR/1.73 m2 (mL/min/1.73m2) >= 60.00 Glucose (74-106) mg/dL 148 H Calcium (8.5-10.1) mg/dL 9.4 Total Bilirubin (0.2-1.0) mg/dL 1.2 H AST (15-37) U/L 18 ALT (16-63) U/L 17 Alkaline Phosphatase (46-116) U/L 66 Total Protein (6.4-8.2) g/dL 7.6 Albumin (3.4-5.0) g/dL 4.1 COVID-19 Source Nasal/Nares SARS-CoV-2 (PCR) (Negative) Negative ECG Data Attestation: I personally reviewed and interpreted this ECG (s) as follows: Interpretation: EKG shows AV paced rhythm with frequent [place] complex, normal axis, no STEMI, nondiagnostic EKG <Justin Estes MD - Last Filed: 09/19/21 18:59> Received care of the patient in signout from Dr. Amaya. Please see her note regarding details of the initial presentation, exam and plan of care. Patient's headache improved with medications. He requested both solids and liquids by mouth and felt improved. He underwent CT angiogram which was unremarkable for acute process. Please see the formal report. He was discharged to home in stable and improved condition. HPI <Ludmila Amaya MD - Last Filed: 10/05/21 21:26> General Mode of arrival: ambulatory . Date/Time Provider Initiated Documentation: 09/19/21 12:29 . Limitations to Documentation: no limitations . Information obtained by: patient, family, RN notes reviewed and old records reviewed . HPI Narrative: Sarbjit Sethi is an 86 y/o man with h/o CAD s/p CABG x3, DM presenting to the emergency department with headache. Pt is accompanied by his daughter who also provides a history. Pt reports that he woke up this morning at 5a with headache localized to left forehead. Pt reports that he has a history of migraines, and reports that last migraine was several years ago. Reports that this headache feels different from his migraines in the past. Pt reports that he vomited three times today, which is not typical for his past migraines. He reports that he was previously in his usual state of health. Denies any other pain, fevers, SOB, cough, rash, numbness, weakness, visual changes. Somewhat decreased PO intake recently. Pt reports that headache g radually worsened over the morning (not most severe at onset) but has now improved somewhat. Pt's daughter reports that she is concerned Pt may be dehydrated which may be related to his headache. Related Data Home Medications Medication Instructions Recorded Confirmed nitroglycerin [Nitrostat] 0.4 mg SUBLINGUAL Q5 MIN PRN X3 03/16/15 09/19/21 PRN tab atorvastatin 20 mg PO HS 09/06/18 09/19/21 finasteride 5 mg PO HS 09/06/18 09/19/21 isosorbide mononitrate 30 mg PO DAILY 09/06/18 09/19/21 aspirin 81 mg PO DAILY 09/19/21 09/19/21 celecoxib [Celebrex] 100 mg PO BID PRN 09/19/21 09/19/21 metformin 500 mg PO BID 09/19/21 09/19/21 metoprolol tartrate 50 mg PO BID 09/19/21 09/19/21 Previous Rx's Medication Instructions Recorded nitroglycerin [Nitrostat] 0.4 mg SUBLINGUAL Q5 MIN PRN X3 03/16/15 PRN tab Allergies Allergy/AdvReac Type Severity Reaction Status Date / Time citalopram [From Celexa] Allergy Mild Verified 09/23/18 09:29 Sulfa (Sulfonamide Allergy Mild Verified 09/23/18 09:30 Antibiotics) General Stated Complaint: Headache LEONEL: 3 Review of Systems <Ludmila Amaya MD - Last Filed: 10/05/21 21:26> Narrative: Constitutional: denies fevers Eyes: denies eye pain ENT: denies ear pain, dental pain, sore throat Cardiovascular: denies chest pain, edema Respiratory: denies SOB, cough GI: denies abdominal pain, diarrhea, reports vomiting : denies flank pain MSK: denies back pain, neck pain, arthralgias, myalgias Skin: denies rash Neuro: denies numbness, weakness, reports headache PFSH <Ludmila Amaya MD - Last Filed: 10/05/21 21:26> Active Problem List (Updated 06/25/19 @ 12:31 by Jewell Null MD) Cephalalgia (Acute) Palliative care patient (Acute) Caregiver stress (Acute) Sciatica (Acute) Ruptured lumbar disc (Acute) Pacemaker (Acute) S/P CABG x 3 (Acute) Coronary artery disease (Chronic) Status post cataract extraction and insertion of intraocular lens of right eye (Acute 09/23/18) Status post cataract extraction and insertion of intraocular lens of left eye (Chronic 09/09/18) Medical History Cortical cataract of left eye Cortical cataract of right eye Nuclear sclerotic cataract of left eye Nuclear sclerotic cataract of right eye Family History (Updated 06/25/19 @ 12:32 by Jewell Null MD) Daughter No problems noted. Daughter No problems noted. Son Parent-child estrangement nec Social History Smoking/Tobacco Use Status: Former Tobacco Use Tobacco: How many years used: 30 Second Hand Exposure: No Smoking risk assessment performed?: Yes Alcohol Intake: former Drug use: Never Caregiver/Support person: Yes Household members: spouse Housing: house Number of Children: 3 Communication Needs: Hard of Hearing Education Level: vocational Do you need help understanding health information?: Often current occupation: retired from [employer] Pets and animals: No What is your relationship status?: How often do you talk on the phone with friends or family?: three or more times per week How often do you get together with friends or relatives?: three or more times per week Panel score (0-1 are the most socially isolated patients): 2 What type of physical activity do you participate in: walking and irregular exercise Duration: 15-30 minutes/day Frequency: daily Special bethany needs: No Seatbelt use: always Working smoke detector in home: Yes Fire extinguisher in home: Yes Firearms in home: Yes Do you feel safe at home: Yes Do you feel safe in your relationship?: Yes Additional Social history: 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 His daughters live nearby and try to help him; he is very independent and stubborn. 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 Marija about a year and a half a go and he has been strugglinjg with it since. states he just wants to go be with her.09/19/21 Exam <Ludmila Amaya MD - Last Filed: 10/05/21 21:26> Narrative Exam Narrative: Constitutional: well and [id number], pleasant, conversing normally HENT: head atraumatic/normocephalic/normal inspection, mucous membranes moist Eyes: conjunctiva normal, sclera normal, pupils 3mm b/l ERRLA, EOMI, no nystagmus Neck: no stridor, normal ROM, trachea midline Chest: normal inspection Resp: normal work of breathing, LCTAB Cardio: normal rate, normal rhythm, no murmur appreciated GI: abdomen soft, non-tender, non-distended Back: normal inspection, no rash Skin: warm, dry, normal color, no rash Neuro: alert, not altered, supervisor insecticide 2-12 intact, motor 5/5 throughout, normal tone Ext: no edema Psych: normal mood, normal affect, normal behavior Course <Ludmila Amaya MD - Last Filed: 10/05/21 21:26> Vital Signs Vital signs: Vital Signs Pulse 77 09/19/21 11:45 Respiratory Rate 18 09/19/21 11:45 Blood Pressure 157/72 H 09/19/21 11:45 Pulse Oximetry 96 09/19/21 11:45 Pulse 65 09/19/21 16:18 Pulse 63 09/19/21 16:20 Respiratory Rate 19 09/19/21 16:20 Respiratory Effort 09/19/21 13:51 Blood Pressure 151/57 H 09/19/21 16:18 Blood Pressure Mean 80 09/19/21 16:18 Blood Pressure Position Sitting 09/19/21 11:45 Pulse Oximetry 97 09/19/21 16:20 Oxygen Delivery Method Room Air 09/19/21 11:45 Oxygen Flow Rate 0 09/19/21 11:45 Lab/Test Results Lab/Test Results: Laboratory Tests Range/Units 09/19/21 09/19/21 12:15 12:15 WBC (4.4-10.8) 10^3/uL 10.01 RBC (4.36-5.78) 10^6/uL 4.60 Hgb (13.5-17.5) g/dL 13.6 Hct (40.0-50.0) % 41.1 MCV (80-95) fL 89.3 MCH (27.0-33.0) pg 29.6 MCHC (32.0-36.0) % 33.1 RDW (11.8-14.1) % 13.3 Plt Count (130-400) 10^3/uL 208 MPV (8.0-11.0) fL 11.5 H Immature Gran % 0.5 Neutrophils % 77.6 Lymphocytes % 16.3 Monocytes % 3.8 Eosinophils % 1.1 Basophils % 0.7 Nucleated RBC % % 0 Absolute Neutrophils (1.2-6.7) 10^3/uL 7.77 H Absolute Lymphocytes (1.2-3.4) 10^3/uL 1.63 Absolute Monocytes (0.1-0.8) 10^3/uL 0.38 Absolute Eosinophils (0.0-0.7) 10^3/uL 0.11 Absolute Basophils (0.0-0.2) 10^3/uL 0.07 Sodium (136-145) mmol/L 140 Potassium (3.5-5.1) mmol/L 3.9 Chloride (98-107) mmol/L 103 Carbon Dioxide (21.0-32.0) mmol/L 27.4 Anion Gap (3-11) mmol/L 9.6 BUN (7-18) mg/dL 19 H Creatinine (0.70-1.30) mg/dL 1.1 Estimated GFR/1.73 m2 (mL/min/1.73m2) >= 60.00 Glucose (74-106) mg/dL 148 H Calcium (8.5-10.1) mg/dL 9.4 Total Bilirubin (0.2-1.0) mg/dL 1.2 H AST (15-37) U/L 18 ALT (16-63) U/L 17 Alkaline Phosphatase (46-116) U/L 66 Total Protein (6.4-8.2) g/dL 7.6 Albumin (3.4-5.0) g/dL 4.1 Sign Out <Ludmila Amaya MD - Last Filed: 10/05/21 21:26> Sign Out Data: Sign Out Comment: Signed out to Dr. Estes at shift change pending CTA, reassessment Last updated by Ludmila Amaya MD at 09/19/21 17:17
[2021-09-19 17:00] LABS: Source Nasal/Nares
[2021-09-19] MEDS: Omnipaque 350 MG/ML 100 ML BTL IJ (17:39)
[2021-09-19] MEDS: Normal Saline - Diluent 50 ML VIAL IV (17:40)
[2021-09-19 17:57] LABS: COVID-19 PCR Negative (Negative)
--- NOTE | 2021-09-19 18:16 | DI.VRAD_ITS ---
PROCEDURE INFORMATION: Exam: CT Angiography Head With Contrast, Arteriography Exam date and time: 09/19/2021 3:10 PM Age: 86 years old Clinical indication: Pain; Headache; Patient HX: H eadache TECHNIQUE: Imaging protocol: Computed tomography angiography of the head with contrast. Exam focused on the arteries. 3D rendering (Not supervised by radiologist): MIP and/or 3D reconstructed images were created by the technologist. COMPARISON: CT HEAD WO 09/19/2021 1:02 PM FINDINGS: ANTERIOR CIRCULATION: Right internal carotid artery: Unremarkable. Intracranial segment is patent with no significant stenosis. No aneurysm. Right middle cerebral artery: Unremarkable. No occlusion or significant stenosis. No aneurysm. Right anterior cerebral artery: Unremarkable. No occlusion or significant stenosis. No aneurysm. Left internal carotid artery: Unremarkable. Intracranial segment is patent with no significant stenosis. No aneurysm. Left middle cerebral artery: Unremarkable. No occlusion or significant stenosis. No aneurysm. Left anterior cerebral artery: Unremarkable. No occlusion or significant stenosis. No aneurysm. POSTERIOR CIRCULATION: Right vertebral artery: Unremarkable. No occlusion or significant stenosis. No aneurysm. Left vertebral artery: Unremarkable. No occlusion or significant stenosis. No aneurysm. Basilar artery: Unremarkable. No occlusion or significant stenosis. No aneurysm. Right posterior cerebral artery: Unremarkable. No occlusion or significant stenosis. No aneurysm. Left posterior cerebral artery: origin of the left posterior cerebral artery is a common developmental variant and there is no occlusion or significant stenosis. No aneurysm. IMPRESSION: No large vessel stenosis or occlusion detected involving the major branches of the anterior or posterior intracranial circulation. PROCEDURE INFORMATION: Exam: CT Angiography Neck With Contrast Exam date and time: 09/19/2021 3:10 PM Age: 86 years old Clinical indication: Pain; Headache; Patient HX: H eadache TECHNIQUE: Imaging protocol: Computed tomography angiography of the neck with contrast. 3D rendering (Not supervised by radiologist): MIP and/or 3D reconstructed images were created by the technologist. COMPARISON: CT HEAD WO 09/19/2021 1:02 PM FINDINGS: Right common carotid artery: No stenosis. No dissection or occlusion. Right internal carotid artery: Atherosclerotic calcifications are seen at the right carotid bifurcation with no evidence of 50% or greater stenosis of the extracranial segment. No dissection or occlusion. Right external carotid artery: No occlusion or stenosis of the origin. Left common carotid artery: No stenosis. No dissection or occlusion. Left internal carotid artery: Atherosclerotic calcifications are seen at the left carotid bifurcation and involving the origin and proximal segment of the left internal carotid artery with no evidence of 50% or greater stenosis of the extracranial segment. No dissection or occlusion. Left external carotid artery: No occlusion or stenosis of the origin. Right vertebral artery: No stenosis. No dissection or occlusion. Left vertebral artery: No stenosis. No dissection or occlusion. Soft tissues: Normal. No significant soft tissue swelling. Bones/joints: No acute fracture. IMPRESSION: No evidence of 50% or greater stenosis involving the cervical segments of the right or left internal carotid arteries by NASCET criteria. REFERENCES: NASCET CRITERIA. The degree of internal carotid artery stenosis is based on NASCET criteria. Normal is no stenosis. Mild is less than 50% stenosis. Moderate is 50-69% stenosis. Severe is 70% to 99% stenosis. Total occlusion is no detectable patent lumen. Dictated and Authenticated by: Cuate Mancilla MD. Ordering:ISABEL Keys MD
[2021-09-19] MEDS: Ibuprofen 800 MG TAB 600 MG PO (18:27)
== END 2021-09-19 19:02 | disposition home or self-care (01) ==
PROVIDERS: Student in an Organized Health Care Education/Training Program; Emergency Provider Emergency Medicine; PCP Internal Medicine
DX: R11.2 Nausea with vomiting, unspecified (principal); R51.9 Headache, unspecified; Z20.822 Contact with and (suspected) exposure to COVID-19; Z03.818 Encounter for observation for suspected exposure to other biological agents ruled out
CPT/HCPCS: 36415; 70496; 70498; 80053; 87635; 93005; 96360; 96361; 99285; 70450; 85025; 93010; 99284; J3490

== ENCOUNTER 2022-09-08 15:05 | Outpatient (REF) | payer MEDICARE, SELFPAY ==
[2022-09-08 16:06] LABS: Anion Gap 7.5 mmol/L (3-11); BUN 33 mg/dL (7-18); CO2 26.5 mmol/L (21.0-32.0); CREATININE 1.3 mg/dL (0.70-1.30); Calcium 9.5 mg/dL (8.5-10.1); Chloride 104 mmol/L (98-107); Glucose 109 mg/dL (74-106); Potassium 4.3 mmol/L (3.5-5.1); Sodium 138 mmol/L (136-145)
== END 2022-09-08 15:06 | disposition home or self-care (01) ==
LOC: NCHCN 15:05
PROVIDERS: PCP Internal Medicine; Visit Provider Internal Medicine
DX: I25.10 Atherosclerotic heart disease of native coronary artery without angina pectoris (principal); E11.9 Type 2 diabetes mellitus without complications; F32.9 Major depressive disorder, single episode, unspecified; M48.061 Spinal stenosis, lumbar region without neurogenic claudication
CPT/HCPCS: 80048

== ENCOUNTER → 2022-10-27 12:59 | Outpatient (BNVA) | payer MEDICARE, SELFPAY | PROVIDERS: PCP Internal Medicine; Referring Provider Internal Medicine; Visit Provider Nurse Practitioner Gerontology | DX: N41.1 Chronic prostatitis (principal) | CPT/HCPCS: 99214 ==

== ENCOUNTER → 2022-11-11 13:41 | Outpatient (BNVA) | payer MEDICARE, SELFPAY | PROVIDERS: PCP Internal Medicine; Referring Provider Internal Medicine; Visit Provider Nurse Practitioner Gerontology | DX: N41.1 Chronic prostatitis (principal) | CPT/HCPCS: 99212 ==

== ENCOUNTER → 2023-02-04 10:02 | Outpatient (BNVA) | payer MEDICARE, SELFPAY | PROVIDERS: PCP Internal Medicine; Referring Provider Internal Medicine; Visit Provider Nurse Practitioner Gerontology | DX: N41.1 Chronic prostatitis (principal); K59.00 Constipation, unspecified; L30.9 Dermatitis, unspecified | CPT/HCPCS: 99213 ==

== ENCOUNTER → 2023-03-30 13:50 | Outpatient (BNVA) | payer MEDICARE, SELFPAY | PROVIDERS: PCP Internal Medicine; Referring Provider Internal Medicine; Visit Provider Nurse Practitioner Gerontology | DX: N41.1 Chronic prostatitis (principal); K59.00 Constipation, unspecified | CPT/HCPCS: 99213 ==

== ENCOUNTER → 2023-07-06 08:15 | Outpatient (BNVA) | payer MEDICARE, SELFPAY | PROVIDERS: PCP Internal Medicine; Referring Provider Internal Medicine; Visit Provider Nurse Practitioner Gerontology | DX: N41.1 Chronic prostatitis (principal); K59.00 Constipation, unspecified; E11.9 Type 2 diabetes mellitus without complications | CPT/HCPCS: 99213 ==

== ENCOUNTER 2023-08-10 16:20 | Outpatient (REF) | payer MEDICARE, SELFPAY ==
[2023-08-10 21:27] LABS: Anion Gap 10.3 mmol/L (3-11); BUN 16 mg/dL (7-18); CO2 25.7 mmol/L (21.0-32.0); CREATININE 1.3 mg/dL (0.70-1.30); Calcium 9.5 mg/dL (8.5-10.1); Chloride 102 mmol/L (98-107); Estimated GFR 53.17 (mL/min/1.73m2); Glucose 210 mg/dL (74-106); Potassium 4.3 mmol/L (3.5-5.1); Sodium 138 mmol/L (136-145)
[2023-08-10 22:12] LABS: Hemoglobin A1C 7.7 % (<5.7)
== END 2023-08-10 16:21 | disposition home or self-care (01) ==
LOC: NCHCN 16:20
PROVIDERS: PCP Internal Medicine; Visit Provider Internal Medicine
DX: E11.9 Type 2 diabetes mellitus without complications (principal); I44.1 Atrioventricular block, second degree
CPT/HCPCS: 80048; 83036

== ENCOUNTER → 2023-10-26 08:12 | Outpatient (BNVA) | payer MEDICARE, SELFPAY | PROVIDERS: PCP Internal Medicine; Visit Provider Nurse Practitioner Gerontology | DX: N41.1 Chronic prostatitis (principal); K59.00 Constipation, unspecified | CPT/HCPCS: 99213 ==

== ENCOUNTER 2023-11-24 07:52 | Outpatient (CLI) | payer MEDICARE, SELFPAY ==
--- NOTE | 2023-11-24 07:45 | RT.EKG_ITS ---
APPROVED REPORT Exam: Resting ECG Reason for Exam: CAD Patient Location: O HR:73 bpm ECG Measurements Heart Rate 73 AXIS [place] [id number] P [id number] QRSd 193 QRS 37 QT 449 T 173 QTc 495 Conclusion Accelerated junctional rhythm...absent P waves, accele'd V-rate IVCD, consider atypical LBBB...QRSd>120, notch/slur R I aVL V5-6 DUAL-CHAMBER PACEMAKER
== END 2023-11-24 07:53 | disposition home or self-care (01) ==
LOC: DI.CARD 08:11
PROVIDERS: PCP Internal Medicine; Visit Provider Physician Assistant
DX: I25.10 Atherosclerotic heart disease of native coronary artery without angina pectoris (principal); Z95.0 Presence of cardiac pacemaker
CPT/HCPCS: 93010

== ENCOUNTER → 2023-11-24 08:51 | Outpatient (BNVA) | payer MEDICARE, SELFPAY | PROVIDERS: PCP Internal Medicine; Referring Provider Internal Medicine; Visit Provider Physician Assistant | DX: Z95.0 Presence of cardiac pacemaker (principal); I25.10 Atherosclerotic heart disease of native coronary artery without angina pectoris | CPT/HCPCS: 93005; 93280 ==

== ENCOUNTER 2024-02-08 10:58 | Emergency (ER) | payer MEDICARE, SELFPAY ==
[2024-02-08] VITALS (15 sets, daily range): BP systolic 93–144; BP diastolic 45–63; PULSE 60–82; RESP 18; TEMP 36.7; O2SAT 75–98
--- NOTE | 2024-02-08 11:00 | RT.EKG_ITS ---
APPROVED REPORT Exam: Resting ECG Reason for Exam: dizzness Patient Location: E HR:78 bpm ECG Measurements Heart Rate 78 AXIS SD 181 P 38 QRSd 159 QRS 94 QT 418 T 251 QTc 478 Conclusion Atrial-ventricular dual-paced rhythm
--- NOTE | 2024-02-08 11:18 | ED.GENADUL_ITS ---
Discharge Plan Disposition Patient Disposition: Home Condition: Stable Discharge Details Clinical Impression: Dizziness Primary Care Provider: Nicole Milton ED Provider: Gulshan Davalos Home Meds and New Rx's Prescriptions: Continued atorvastatin 20 mg Tablet 20 mg PO HS isosorbide mononitrate 30 mg Tablet Extended Release 24 Hr 30 mg PO DAILY finasteride 5 mg Tablet 5 mg PO HS aspirin 81 mg Tablet,Delayed Release (Dr/Ec) 81 mg PO DAILY metoprolol tartrate 50 mg tablet 50 mg PO BID Patient Comments: TAKE ONE TABLET BY MOUTH TWICE A DAY nitroglycerin 0.4 mg tablet, sublingual 0.4 mg sublingual Q5-15M PRN Rx Instructions: do not exceed 3 doses per episode Discharge Instructions Additional Instructions: Your blood work and CAT scan did not show concerning findings at this time Try to make sure you are staying hydrated by drinking liquids throughout the day Follow-up with your primary care provider within 1 week You feel more ill, have severe worsening weakness or new symptoms such as difficulty breathing return to the emergency department for reevaluation HPI General Date/Time Provider Initiated Documentation: 02/08/24 11:00 . Limitations to Documentation: no limitations . Information obtained by: patient . History of Present Illness 89 year old M presents to the emergency department with the chief complaint of dizziness, described as moderate, Patient started experiencing this week(s) (1) and it has been intermittent. No relieving factors improve symptom(s), No exacerbating factors reported . Patient notes no other symptoms.; denies chest pain, fever/chills and shortness of breath. Patient did receive the following treatments prior to arrival, none Related Data Home Medications Medication Instructions Recorded Confirmed atorvastatin 20 mg tablet 20 mg PO HS 09/06/18 02/08/24 finasteride 5 mg tablet 5 mg PO HS 09/06/18 02/08/24 isosorbide mononitrate 30 mg 30 mg PO DAILY 09/06/18 02/08/24 tablet,extended release 24 hr aspirin 81 mg tablet,delayed 81 mg PO DAILY 09/19/21 02/08/24 release metoprolol tartrate 50 mg tablet 50 mg PO BID 09/19/21 02/08/24 nitroglycerin 0.4 mg sublingual 0.4 mg sublingual Q5-15M PRN 02/08/24 02/08/24 tablet Allergies Allergy/AdvReac Type Severity Reaction Status Date / Time citalopram [From Celexa] Allergy Mild Verified 11/24/23 09:13 Sulfa (Sulfonamide Allergy Mild Verified 11/24/23 09:13 Antibiotics) ranolazine [From Ranexa] AdvReac Other (See Verified 11/24/23 09:13 Comment) General Stated Complaint: Dizzy/Sync LEONEL: 3 Review of Systems All systems reviewed & are unremarkable except as noted in HPI and below Constitutional Constitutional: Denies chills and Denies fever(s) Eyes Eyes: Denies loss of vision Cardiovascular Cardiovascular: Denies chest pain and Denies dyspnea Respiratory Respiratory: Denies cough and Denies dyspnea Gastrointestinal Gastrointestinal: Denies abdominal pain, Denies nausea and Denies vomiting Musculoskeletal Musculoskeletal: Denies joint swelling Neurologic Neurologic: Denies loss of vision Exam Const General: no acute distress Orientation: alert HENMT Head: normal to inspection Ears: external ears normal General nose exam: external nose normal Mouth: moist mucous membranes Eyes General: appearance normal, both eyes and all related structures Neck Neck: normal visual inspection Resp Effort & Inspection: normal respiratory effort and able to speak in complete sentences Auscultation: clear to auscultation bilaterally Cardio Rate: regular rate Heart Sounds: no murmurs GI Palpation: soft and nontender Skin General skin exam: no rashes or lesions noted Neuro General: patient alert and patient oriented x3 Extrem General: normal to inspection Psych Mental Status: mental status grossly normal Course Vital Signs Vital signs: Vital Signs Temperature 36.7 C 02/08/24 11:02 Pulse 82 02/08/24 11:02 Respiratory Rate 18 02/08/24 11:02 Blood Pressure 144/63 H 02/08/24 11:02 Pulse Oximetry 98 02/08/24 11:02 Temperature 36.7 C 02/08/24 11:02 Temperature Source Tympanic 02/08/24 11:02 Pulse 82 02/08/24 11:02 Respiratory Rate 18 02/08/24 11:07 Respiratory Effort Normal 02/08/24 11:07 Respiratory Depth Normal 02/08/24 11:07 Respiratory Pattern Normal 02/08/24 11:07 Blood Pressure 144/63 H 02/08/24 11:02 Blood Pressure Position Sitting 02/08/24 11:02 Pulse Oximetry 98 02/08/24 11:02 Pain Level 0 02/08/24 11:02 Medical Decision Making 89-year-old male with a history of pacemaker, CABG, who comes in with 1 week of intermittent episodes of dizziness when standing. Denies any falls, no chest pain, no difficulty breathing, no fevers no headaches. Yesterday he states he had an episode of dizziness where he felt like his left eye was blurry. Today he states he feels well, has no chest pain currently and no abdominal pain, has no focal deficits on exam, NIH currently 0. Unclear etiology for his dizziness when standing but suspect this could be orthostasis, will check CBC, CMP EKG and troponin, and obtain CT head. Labs and imaging unremarkable, patient stable without acute complaints and has no neurological deficits. Suspect he is having episodes of orthostasis states he does not really drink a lot of liquids during the day. Had no unilateral weakness, speech changes so doubt TIA. He is stable for discharge, advised to follow-up with his primary care provider and return precautions given Differential Diagnosis Differential Diagnosis: anemia,electrolyte abnormality Medical Records Medical records reviewed: Yes I reviewed the patient's medical records. Imaging Data Radiologic Study: Attestation: I personally reviewed and interpreted this imaging study as follows: Imaging: CT Scan Radiologist's impression: IMPRESSION: No acute intracranial findings on this noninfused CT scan of the brain. Symmetrical advanced involutional change is again noted with minimal if any significant change from prior CT scan of 09/19/2021. Lab Data Lab results reviewed: Yes I reviewed the patient's lab results. ECG Data Attestation: I personally reviewed and interpreted this ECG (s) as follows: Prior ECG tracings: available for review Interpretation: paced rhythm rate of 78 no acute changes from prior Quality:SDOH Health Related Social Needs: No Data to Display PFSH All Active Problems (Updated 08/18/23 @ 14:01 by Wayne Alvarez RN) Dizziness (Acute) Peripheral neuropathy (Acute) BPH (benign prostatic hyperplasia) (Chronic) Neurogenic claudication (Acute) Depression (Chronic) Diabetes (Chronic) Cephalalgia (Acute) Caregiver stress (Acute) Sciatica (Acute) Ruptured lumbar disc (Acute) Pacemaker (Acute) 08/18/23 Medtronic dual pacer Serial # [id number] model #ELENO XT [id number] Wi Pacer Placed 01/24/2013, generator change 04/13/[address] GROVE, does not have remote access to downloads, agrees to see [facility] device clinic 11/24/23 RH S/P CABG x 3 (Acute) 08/18/2310/2013 had CABG x 2 RH Coronary artery disease (Chronic) Status post cataract extraction and insertion of intraocular lens of right eye (Acute 09/23/18) Status post cataract extraction and insertion of intraocular lens of left eye (Chronic 09/09/18) Medical History (Updated 02/08/24 @ 12:50 by Gulshan Davalos MD) Palliative care patient Cortical cataract of right eye Nuclear sclerotic cataract of right eye Cortical cataract of left eye Nuclear sclerotic cataract of left eye Family History Daughter No problems noted. Daughter No problems noted. Son Parent-child estrangement nec Social History Smoking/Tobacco Use Status: Former Tobacco Use Tobacco: How many years used: 30 Second Hand Exposure: No Smoking risk assessment performed?: Yes Alcohol Intake: former Drug use: Never Caregiver/Support person: Yes Household members: spouse Housing: house Number of Children: 3 Communication Needs: Hard of Hearing Education Level: vocational Do you need help understanding health information?: Often current occupation: retired from [employer] Pets and animals: No What is your relationship status?: How often do you talk on the phone with friends or family?: three or more times per week How often do you get together with friends or relatives?: three or more times per week Panel score (0-1 are the most socially isolated patients): 2 What type of physical activity do you participate in: walking and irregular exercise Duration: 15-30 minutes/day Frequency: daily Special bethany needs: No Seatbelt use: always Working smoke detector in home: Yes Fire extinguisher in home: Yes Firearms in home: Yes Do you feel safe at home: Yes Do you feel safe in your relationship?: Yes Additional Social history: 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 His daughters live nearby and try to help him; he is very independent and stubborn. 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 Marija about a year and a half a go and he has been strugglinjg with it since. states he just wants to go be with her.09/19/21
[2024-02-08] MEDS: Normal Saline 250 ML 500 ML IV (11:25)
--- NOTE | 2024-02-08 11:30 | DI.CT_ITS ---
Exam(s) CT HEAD WO EXAM: CT HEAD WO CLINICAL HISTORY: dizziness. TECHNIQUE: Imaging Protocol: Axial computed tomography images with coronal and sagittal reformatted images were created and reviewed COMPARISON: Prior CT scan of September 2021. FINDINGS: There are no skull fractures. There is no fluid in the visualized paranasal sinuses. There is no evidence of intracranial hemorrhage, mass effect, or shift of midline structures. There are no extra-axial fluid collections. There is advanced symmetrical involutional change again noted. Ventricular size is unchanged. There is no blood within the ventricular system nor within the basa l cisterns. IMPRESSION: No acute intracranial findings on this noninfused CT scan of the brain. Symmetrical advanced involutional change is again noted with minimal if any significant change from p rior CT scan of 09/19/2021. Report called by myself to ER physician. RADIATION DOSE DELIVERED: Total DLP DATA REPOSITORY: All CT scans at this facility are submitted to the National Radiology Data Registry (NRDR) Dose Index Registry (DIR) with the [employer] (ACR). RADIATION OPTIMIZATION: All CT scans at this facility use at least one of these dose optimization te chniques: automated exposure control; mA and/or kV adjustment per patient size (includes targeted exa ms where dose is matched to clinical indication); or iterative reconstruction.
[2024-02-08 11:43] LABS: Abs Immature Grans 0.03 10^3/uL (0.0-0.06); Absolute Basophil Count 0.08 10^3/uL (0.0-0.2); Absolute Eosinophil Count 0.38 10^3/uL (0.0-0.7); Absolute Lymphocyte Count 2.21 10^3/uL (1.2-3.4); Absolute Monocyte Count 0.69 10^3/uL (0.1-0.8); Absolute Neutrophil Count 5.37 10^3/uL (1.2-6.7); Basophils % 0.9; Eosinophils % 4.3; HCT 42.1 % (40.0-50.0); HGB 14.1 g/dL (13.5-17.5); Immature Grans % 0.3; Lymphocytes % 25.2; MCH 30.4 pg (27.0-33.0); MCHC 33.5 % (32.0-36.0); MCV 91 fL (80-95); MPV 10.8 fL (8.0-11.0); Monocytes % 7.9; Neutrophils % 61.4; Platelet Count 206 10^3/uL (130-400); RBC 4.64 10^6/uL (4.36-5.78); RDW 12.9 % (11.8-14.1); RDW-SD 42.9 fL; WBC 8.76 10^3/uL (4.4-10.8)
[2024-02-08 11:57] LABS: PTT Activated 25.3 sec (23.6-32.8); Prothrombin Time 10.5 sec (9.1-11.1)
[2024-02-08 12:06] LABS: ALT 20 U/L (16-63); AST 18 U/L (15-37); Albumin 3.6 g/dL (3.4-5.0); Alkaline Phosphatase 101 U/L (46-116); Anion Gap 8.6 mmol/L (3-11); BUN 23 mg/dL (7-18); Bilirubin, Total 0.9 mg/dL (0.2-1.0); CO2 27.4 mmol/L (21.0-32.0); CREATININE 1.2 mg/dL (0.70-1.30); Calcium 9.3 mg/dL (8.5-10.1); Chloride 104 mmol/L (98-107); Estimated GFR 58.17 (mL/min/1.73m2); Glucose 159 mg/dL (74-106); Potassium 4.3 mmol/L (3.5-5.1); Sodium 140 mmol/L (136-145); TSH (W/Ref FT4) 2.94 uIU/mL (0.36-3.74); Total Protein 7.3 g/dL (6.4-8.2); Troponin I < 50 ng/L (< or =60)
== END 2024-02-08 13:09 | disposition home or self-care (01) ==
PROVIDERS: Emergency Provider Emergency Medicine; PCP Family Medicine
DX: R42 Dizziness and giddiness (principal); R53.1 Weakness; E11.9 Type 2 diabetes mellitus without complications; I25.10 Atherosclerotic heart disease of native coronary artery without angina pectoris; Z95.0 Presence of cardiac pacemaker; Z95.1 Presence of aortocoronary bypass graft; Z87.891 Personal history of nicotine dependence; Z79.82 Long term (current) use of aspirin
CPT/HCPCS: 80053; 87637; 93005; 99285; 70450; 83735; 84443; 84484; 85025; 85610; 85730; 93010; 99284

== ENCOUNTER 2024-08-30 10:10 | Emergency (ER) | payer MEDICARE, SELFPAY ==
[2024-08-30 10:17] VITALS: BP 106/42; PULSE 82; PULSE 83; RESP 18; TEMP 36.4; O2SAT 97
--- NOTE | 2024-08-30 11:00 | DI.CT_ITS ---
Exam(s) CT ABDOMEN PELVIS W EXAM: CT ABDOMEN PELVIS W CLINICAL HISTORY: mid abd pain and hernia. TECHNIQUE: Imaging Protocol: Axial computed tomography images with coronal and sagittal reformatted images were created and reviewed CONTRAST MATERIAL: Intravenous: Omnipaque-350 85cc Oral: None COMPARISON: US POCUS EXAM from 08/30/2024 FINDINGS: VISUALIZED LUNG BASES: No nodules nor pleural effusions evident. Sternotomy wires and cardiac pacema ker wires noted. ABDOMEN: There is no ascites. LIVER: There are multiple lesions in both lobes of the liver which appear neoplastic/probably metasta tic. The largest of these is in the upper right hepatic lobe and measures approximately 9 cm x 6 cm by 7 cm. GI: There is a huge malignant-appearing lobulated mass in the right side of the abdomen intimately as sociated with the hepatic flexure and proximal at half of the transverse colon. This internally hypo dense mass measures 17 cm wide x 15 cm wide x 16 cm craniocaudal. It is internally hypodense consist ent with internal necrosis. Does not contain gas bubbles. It extends up to the anterior abdominal w all. This mass displaces small bowel loops. It appears to be exophytic off of the hepatic flexure a nd proximal transverse colon and is inseparable from the wall of the proximal transverse colon for a distance of 12-13 cm. There is, however, no obstruction at this level. GALLBLADDER/BILIARY: No obvious gallbladder pathology. CBD is not dilated. PANCREAS: No evidence of pancreatic mass nor dilatation of the pancreatic duct. SPLEEN: Spleen is not enlarged. No obvious intrasplenic lesions. Splenic and portal veins are paten t. ADRENALS: There are no significant adrenal masses. KIDNEYS:There is a partially calcified benign-appearing 4 cm cyst in the superior pole of the left ki dney. No other significant focal renal findings. No hydronephrosis. No solid renal masses. No maximilian culi nor hydronephrosis.. ABDOMINAL AORTA: Abdominal aorta is heavily calcified but not enlarged. Common iliac arteries are al so heavily calcified. Upper limits normal diameter for this advanced age group. LYMPH NODES:There is no retroperitoneal nor paraaortic adenopathy. ABDOMINAL WALL: No evidence of significant anterior abdominal wall nor inguinal hernia. PELVIS: GI: Appendix appears unremarkable.There is extensive sigmoid diverticulosis. No obvious acute divert iculitis. LYMPH NODES: No intrapelvic nor inguinal adenopathy evident. REPRODUCTIVE: Moderately enlarged prostate. Seminal vesicles unremarkable. URINARY BLADDER: Mildly distended and trabeculated. OSSEOUS: There is posterior fusion hardware at L4-5 level. There are bilateral intrapedicular screws at these 2 levels. The lower set of intrapedicular screws are somewhat high relative to the superio r endplate of L5 vertebral body and projecting into the disc space. There is no listhesis. Advanced disc space narrowing at L4-5 and L5-S1 levels noted. No abnormal disc space narrowing above the lev el of the fusion hardware. IMPRESSION: 1. There is a huge neoplastic appearing mass in the right-side of the abdomen measuring approximately 17 x 16 x 15 cm inseparable from the hepatic flexure and proximal half of the transverse colon from which are probably region 8 XXXX. This large mass is centrally necrotic. 2. There are multiple metastatic appearing lesions in both lobes of the liver, the largest of these l esions being in the upper right hepatic lobe and measuring 9 x 6 x 7 cm 3. There is no evidence of bowel obstruction at the level of involved transverse colon. 4. No obvious ascites. Other findings as above. Report called by myself to ER physician 08/30/2024 at 12:50 p.m. RADIATION DOSE DELIVERED: 471.44mGy.cm Total DLP DATA REPOSITORY: All CT scans at this facility are submitted to the National Radiology Data Registry (NRDR) Dose Index Registry (DIR) with the [employer] (ACR). RADIATION OPTIMIZATION: All CT scans at this facility use at least one of these dose optimization te chniques: automated exposure control; mA and/or kV adjustment per patient size (includes targeted exa ms where dose is matched to clinical indication); or iterative reconstruction.
[2024-08-30 11:01] LABS: Abs Immature Grans 0.04 10^3/uL (0.0-0.06); Absolute Basophil Count 0.09 10^3/uL (0.0-0.2); Absolute Eosinophil Count 0.33 10^3/uL (0.0-0.7); Absolute Lymphocyte Count 1.94 10^3/uL (1.2-3.4); Absolute Monocyte Count 0.83 10^3/uL (0.1-0.8); Absolute Neutrophil Count 6.63 10^3/uL (1.2-6.7); Basophils % 0.9 %; Eosinophils % 3.3 %; HCT 38.2 % (40.0-50.0); HGB 12.5 g/dL (13.5-17.5); Immature Grans % 0.4 %; Lymphocytes % 19.7 %; MCH 28.8 pg (27.0-33.0); MCHC 32.7 % (32.0-36.0); MCV 88 fL (80-95); MPV 11.2 fL (8.0-11.0); Monocytes % 8.4 %; Neutrophils % 67.3 %; Platelet Count 322 10^3/uL (130-400); RBC 4.34 10^6/uL (4.36-5.78); RDW 14.6 % (11.8-14.1); RDW-SD 46.9 fL; WBC 9.86 10^3/uL (4.4-10.8)
[2024-08-30 11:19] LABS: ALT 29 U/L (16-63); AST 37 U/L (15-37); Albumin 3.3 g/dL (3.4-5.0); Alkaline Phosphatase 215 U/L (46-116); Anion Gap 10.9 mmol/L (3-11); BUN 23 mg/dL (7-18); Bilirubin, Total 0.97 mg/dL (0.2-1.0); CO2 28.1 mmol/L (21.0-32.0); CREATININE 1.4 mg/dL (0.70-1.30); Calcium 9.7 mg/dL (8.5-10.1); Chloride 101 mmol/L (98-107); Estimated GFR 48.34 (mL/min/1.73m2); Glucose 171 mg/dL (74-106); Lipase 21 U/L (16-77); Potassium 4.2 mmol/L (3.5-5.1); Sodium 140 mmol/L (136-145)
[2024-08-30] MEDS: Normal Saline - Diluent 50 ML VIAL IJ (12:00)
[2024-08-30] MEDS: Omnipaque 350 MG/ML 100 ML BTL IJ (12:01)
--- NOTE | 2024-08-30 13:30 | SCONE_ITS ---
Date of service: 08/30/24 Time of Service: 16:14 Assessment and Plan Assessment and plan (1) Intraabdominal mass: Status: Acute Assessment and plan: 89-year-old man with a large mass in his abdomen that is almost certainly a colon cancer along with metastatic lesions evident in the liver. Of course we do not have tissue diagnosis and so there is no way to be absolutely sure, but that certainly looks like the likely clinical diagnosis. There is no evidence radiographically of small bowel obstruction proximal to this and he is not distended. However, this is certainly the beginnings of a large bowel obstruction clinically, evidenced by no bowel movement for 3 to 4 days. I had a very long and very detailed discussion with the patient and his 2 daughters at the bedside. Their goals of care are completely realistic. He wants nothing done. He wants no invasive procedures and he does not want any surgery. He is not afraid of dying nor is he afraid of pain. We discussed all of the options that are available to him under the presumption that this is his cancer and that it will obstruct. We talked about diverting ostomies, we talked about biopsy procedures for certainty, we talked about exploratory surgery. His overall goals were: I absolutely do not want to have a bag under any circumstance. If my heart stops do not restart it. I do not want to have any operations or any procedures I want to go fishing and live what little bit of life I have left in peace, at home, with my family and friends. Under no circumstances do I want to be in a assisted or under nursing care. His goals of care are completely reasonable and appropriate. I endorse him and I was very straightforward, empathetically, with the family about this being the end of life. How much time he has left is unclear however I suspect that he is starting to obstruct based off of his clinical presentation and as he stops eating and drinking, he will deteriorate very quickly. Exactly when that will occur is unclear but I did encourage him to get out and go fishing since he really wants to do that with his best friend. Him and his daughters at the bedside agree on DNR/DNI status. I did ask for hospice care to be consulted and set up for him at home if and when he needs them. He is available to call our office at any time for further discussion if and as necessary 50 minutes were spent on consultation and discussion with him and his family History of Present Illness Narrative: The patient is an 89-year-old man who is having on and off abdominal pain that comes and goes. It was worse most severe yesterday. He has had a colonoscopy many years ago but has not had one recently. He says I was told I was too old. There is no family history of colon cancer. He is most concerned because he has not had a bowel movement in 3 days. He is hungry however. PFSH All Active Problems Lesion of liver (Acute) Intraabdominal mass (Acute) Peripheral neuropathy (Acute) BPH (benign prostatic hyperplasia) (Chronic) Neurogenic claudication (Acute) Depression (Chronic) Diabetes (Chronic) Cephalalgia (Acute) Caregiver stress (Acute) Sciatica (Acute) Ruptured lumbar disc (Acute) Pacemaker (Acute) 08/18/23 Medtronic dual pacer Serial # [id number] model #ELENO XT [id number] Wi Pacer Placed 01/24/2013, generator change 04/13/[address] FLEMING, does not have remote access to downloads, agrees to see [facility] device clinic 11/24/23 RH S/P CABG x 3 (Acute) 08/18/2310/2013 had CABG x 2 RH Coronary artery disease (Chronic) Status post cataract extraction and insertion of intraocular lens of right eye (Acute 09/23/18) Status post cataract extraction and insertion of intraocular lens of left eye (Chronic 09/09/18) Medical History Palliative care patient Cortical cataract of right eye Nuclear sclerotic cataract of right eye Cortical cataract of left eye Nuclear sclerotic cataract of left eye Family History Daughter No problems noted. Daughter No problems noted. Son Parent-child estrangement nec Social History Smoking/Tobacco Use Status: Former Tobacco Use Tobacco: How many years used: 30 Second Hand Exposure: No Smoking risk assessment performed?: Yes Alcohol Intake: former Drug use: Never Caregiver/Support person: Yes Household members: spouse Housing: house Number of Children: 3 Communication Needs: Hard of Hearing Education Level: vocational Do you need help understanding health information?: Often current occupation: retired from [employer] Pets and animals: No What is your relationship status?: How often do you talk on the phone with friends or family?: three or more times per week How often do you get together with friends or relatives?: three or more times per week Panel score (0-1 are the most socially isolated patients): 2 What type of physical activity do you participate in: walking and irregular exercise Duration: 15-30 minutes/day Frequency: daily Special bethany needs: No Seatbelt use: always Working smoke detector in home: Yes Fire extinguisher in home: Yes Firearms in home: Yes Do you feel safe at home: Yes Do you feel safe in your relationship?: Yes Additional Social history: 2 daughters at bedside, very supportive. Exam Narrative Exam Narrative: Gen: Non-toxic, comfortable and interactive Neuro: Alert and oriented x3 Psych: Good mood and affect. Excellent insight and understanding into condition. Chest: Non-labored breathing, no wheezing, no visible shortness of breath. Heart: Regular Abdomen: Soft, tender in the epigastric area with palpable firmness/mass. No peritoneal signs. No distention. Results Last Vital Signs Temp 97.5 F L 08/30/24 10:17 Pulse 82 08/30/24 10:17 Resp 18 08/30/24 10:17 BP 106/42 L 08/30/24 10:17 Pulse Ox 97 08/30/24 10:17 Labs 08/30/24 10:31 08/30/24 10:31 Labs: Laboratory Results - last 24 hr 08/30/24 10:31 WBC 9.86 RBC 4.34 L Hgb 12.5 L Hct 38.2 L MCV 88 MCH 28.8 MCHC 32.7 RDW 14.6 H Plt Count 322 MPV 11.2 H Immature Gran % 0.4 Neutrophils % 67.3 Lymphocytes % 19.7 Monocytes % 8.4 Eosinophils % 3.3 Basophils % 0.9 Nucleated RBC % 0.0 Absolute Neutrophils 6.63 Absolute Lymphocytes 1.94 Absolute Monocytes 0.83 H Absolute Eosinophils 0.33 Absolute Basophils 0.09 Sodium 140 Potassium 4.2 Chloride 101 Carbon Dioxide 28.1 Anion Gap 10.9 BUN 23 H Creatinine 1.4 H Est GFR (CKD-EPI 2020) 48.34 Glucose 171 H Calcium 9.7 Magnesium 2.0 Total Bilirubin 0.97 AST 37 ALT 29 Alkaline Phosphatase 215 H Total Protein 8.0 Albumin 3.3 L Lipase 21
--- NOTE | 2024-08-30 13:54 | W.ED.GENAD ---
Discharge Plan Disposition Patient Disposition: Home Discharge Details Clinical Impression: Intraabdominal mass, Lesion of liver Primary Care Provider: Nicole Milton ED Provider: Cristo Amaya Home Meds and New Rx's Prescriptions: Continued atorvastatin 20 mg Tablet 20 mg PO HS isosorbide mononitrate 30 mg Tablet Extended Release 24 Hr 30 mg PO DAILY finasteride 5 mg Tablet 5 mg PO HS metoprolol tartrate 50 mg tablet 50 mg PO BID Patient Comments: TAKE ONE TABLET BY MOUTH TWICE A DAY nitroglycerin 0.4 mg tablet, sublingual 0.4 mg sublingual Q5-15M PRN Rx Instructions: do not exceed 3 doses per episode Discontinued aspirin 81 mg Tablet,Delayed Release (Dr/Ec) 81 mg PO DAILY Discharge Instructions Additional Instructions: Please contact your primary care physician to arrange follow-up. Please follow-up with hospice service. Return to the ER immediately for any worsening or new concerning symptoms. Referrals: Nicole Milton [Primary Care Provider] - [facility] General Mode of arrival: ambulatory. Date/Time Provider Initiated Documentation: 08/30/24 10:39. Limitations to Documentation: no limitations. Information obtained by: patient. HPI Narrative: 89-year-old male with history of coronary artery disease status post CABG x 3, prior abdominal hernias, here with chief complaint of abdominal pain. Patient notes abdominal pain started last night. Pain was focal and central and felt like a firm mass. Patient did lift heavy object yesterday. Related Data Home Medications ?Medication ?Instructions ?Recorded ?Confirmed atorvastatin 20 mg tablet 20 mg PO HS 09/06/18 08/30/24 finasteride 5 mg tablet 5 mg PO HS 09/06/18 08/30/24 isosorbide mononitrate 30 mg 30 mg PO DAILY 09/06/18 08/30/24 tablet,extended release 24 hr metoprolol tartrate 50 mg tablet 50 mg PO BID 09/19/21 08/30/24 nitroglycerin 0.4 mg sublingual 0.4 mg sublingual Q5-15M PRN 02/08/24 08/30/24 tablet Allergies Allergy/AdvReac Type Severity Reaction Status Date / Time citalopram (From Celexa) Allergy Mild Other (See Verified 08/30/24 10:22 Comment) Sulfa (Sulfonamide Allergy Mild Other (See Verified 08/30/24 10:22 Antibiotics) Comment) ranolazine (From Ranexa) AdvReac Other (See Verified 08/30/24 10:22 Comment) General Stated Complaint: Abd Prob LEONEL: 3 Review of Systems All systems reviewed & are unremarkable except as noted in HPI and below Constitutional Constitutional: Denies fever(s) Gastrointestinal Gastrointestinal: Reports as per HPI Exam Const General: cooperative and no acute distress HENMT Mouth: moist mucous membranes Eyes Sclera: normal sclerae Resp Auscultation: clear to auscultation bilaterally, no rales, no rhonchi and no wheezes Cardio Rate: regular rate and not tachycardic Rhythm: regular rhythm GI Palpation: soft, not firm, no guarding and not rigid Skin General skin exam: no rashes or lesions noted Neuro General: patient alert, patient awake, patient oriented x3 and tone normal Extrem General: no edema Psych Appearance: grossly normal Mental Status: mental status grossly normal Speech and Movement: speech and movement normal Course Vital Signs Vital signs: Vital Signs Temperature 36.4 C L 08/30/24 10:17 Pulse 83 08/30/24 10:17 Respiratory Rate 18 08/30/24 10:17 Blood Pressure 106/42 L 08/30/24 10:17 Pulse Oximetry 97 08/30/24 10:17 Temperature 36.4 C L 08/30/24 10:17 Pulse 82 08/30/24 10:17 Respiratory Rate 18 08/30/24 10:17 Respiratory Effort Normal, Non-Labored 08/30/24 10:57 Blood Pressure 106/42 L 08/30/24 10:17 Blood Pressure Mean 61 08/30/24 10:17 Blood Pressure Position Sitting 08/30/24 10:17 Pulse Oximetry 97 08/30/24 10:17 Oxygen Delivery Method Room Air 08/30/24 10:17 Oxygen Flow Rate 0 08/30/24 10:17 Pain Level 0 08/30/24 10:17 Lab/Test Results Lab/Test Results: Laboratory Tests Range/Units 08/30/24 10:31 WBC (4.4-10.8) 10^3/uL 9.86 RBC (4.36-5.78) 10^6/uL 4.34 L Hgb (13.5-17.5) g/dL 12.5 L Hct (40.0-50.0) % 38.2 L MCV (80-95) fL 88 MCH (27.0-33.0) pg 28.8 MCHC (32.0-36.0) % 32.7 RDW (11.8-14.1) % 14.6 H Plt Count (130-400) 10^3/uL 322 MPV (8.0-11.0) fL 11.2 H Immature Gran % % 0.4 Neutrophils % % 67.3 Lymphocytes % % 19.7 Monocytes % % 8.4 Eosinophils % % 3.3 Basophils % % 0.9 Nucleated RBC % (0.0-0.3) % 0.0 Absolute Neutrophils (1.2-6.7) 10^3/uL 6.63 Absolute Lymphocytes (1.2-3.4) 10^3/uL 1.94 Absolute Monocytes (0.1-0.8) 10^3/uL 0.83 H Absolute Eosinophils (0.0-0.7) 10^3/uL 0.33 Absolute Basophils (0.0-0.2) 10^3/uL 0.09 Sodium (136-145) mmol/L 140 Potassium (3.5-5.1) mmol/L 4.2 Chloride (98-107) mmol/L 101 Carbon Dioxide (21.0-32.0) mmol/L 28.1 Anion Gap (3-11) mmol/L 10.9 BUN (7-18) mg/dL 23 H Creatinine (0.70-1.30) mg/dL 1.4 H Est GFR (CKD-EPI 2020) (mL/min/1.73m2) 48.34 Glucose (74-106) mg/dL 171 H Calcium (8.5-10.1) mg/dL 9.7 Magnesium (1.8-2.4) mg/dL 2.0 Total Bilirubin (0.2-1.0) mg/dL 0.97 AST (15-37) U/L 37 ALT (16-63) U/L 29 Alkaline Phosphatase (46-116) U/L 215 H Total Protein (6.4-8.2) g/dL 8.0 Albumin (3.4-5.0) g/dL 3.3 L Lipase (16-77) U/L 21 Medical Decision Making 89-year-old male with history of coronary artery disease, here with abdominal pain since last night, focal area of tenderness with mass on palpation. POCUS performed initial concern for potential hernia. CT was obtained of the abdomen pelvis and interpreted by radiology:1. There is a huge neoplastic appearing mass in the right-side of the abdomen measuring approximately 17 x 16 x 15 cm inseparable from the hepatic flexure and proximal half of the transverse colon from which are probably region 8 XXXX. This large mass is centrally necrotic. 2. 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 There is no evidence of bowel obstruction at the level of involved transverse colon. 4. No obvious ascites Results were discussed with the patient. I have called and spoke with Dr. Cerna, discussed ED presentation course, he will review CT and evaluate the patient. 1540 -- Patient was evaluated by Dr. Cerna, plan to transition to hospice for comfort care. Care management engaged with patient. I offered analgesic and this was declined. Lab Data Lab results reviewed: Yes I reviewed the patient's lab results. Labs: Laboratory Tests Range/Units 08/30/24 10:31 WBC (4.4-10.8) 10^3/uL 9.86 RBC (4.36-5.78) 10^6/uL 4.34 L Hgb (13.5-17.5) g/dL 12.5 L Hct (40.0-50.0) % 38.2 L MCV (80-95) fL 88 MCH (27.0-33.0) pg 28.8 MCHC (32.0-36.0) % 32.7 RDW (11.8-14.1) % 14.6 H Plt Count (130-400) 10^3/uL 322 MPV (8.0-11.0) fL 11.2 H Immature Gran % % 0.4 Neutrophils % % 67.3 Lymphocytes % % 19.7 Monocytes % % 8.4 Eosinophils % % 3.3 Basophils % % 0.9 Nucleated RBC % (0.0-0.3) % 0.0 Absolute Neutrophils (1.2-6.7) 10^3/uL 6.63 Absolute Lymphocytes (1.2-3.4) 10^3/uL 1.94 Absolute Monocytes (0.1-0.8) 10^3/uL 0.83 H Absolute Eosinophils (0.0-0.7) 10^3/uL 0.33 Absolute Basophils (0.0-0.2) 10^3/uL 0.09 Sodium (136-145) mmol/L 140 Potassium (3.5-5.1) mmol/L 4.2 Chloride (98-107) mmol/L 101 Carbon Dioxide (21.0-32.0) mmol/L 28.1 Anion Gap (3-11) mmol/L 10.9 BUN (7-18) mg/dL 23 H Creatinine (0.70-1.30) mg/dL 1.4 H Est GFR (CKD-EPI 2020) (mL/min/1.73m2) 48.34 Glucose (74-106) mg/dL 171 H Calcium (8.5-10.1) mg/dL 9.7 Magnesium (1.8-2.4) mg/dL 2.0 Total Bilirubin (0.2-1.0) mg/dL 0.97 AST (15-37) U/L 37 ALT (16-63) U/L 29 Alkaline Phosphatase (46-116) U/L 215 H Total Protein (6.4-8.2) g/dL 8.0 Albumin (3.4-5.0) g/dL 3.3 L Lipase (16-77) U/L 21 Quality:SDOH Health Related Social Needs: No Data to Display PFSH All Active Problems Lesion of liver (Acute) Intraabdominal mass (Acute) Peripheral neuropathy (Acute) BPH (benign prostatic hyperplasia) (Chronic) Neurogenic claudication (Acute) Depression (Chronic) Diabetes (Chronic) Cephalalgia (Acute) Caregiver stress (Acute) Sciatica (Acute) Ruptured lumbar disc (Acute) Pacemaker (Acute) 08/18/23 [employer] dual pacer Serial # [id number] model #ELENO XT [id number] Wi Pacer Placed 01/24/2013, generator change 04/13/[address] FLEMING, does not have remote access to downloads, agrees to see [facility] device clinic 11/24/23 RH S/P CABG x 3 (Acute) 08/18/2310/2013 had CABG x 2 RH Coronary artery disease (Chronic) Status post cataract extraction and insertion of intraocular lens of right eye (Acute 09/23/18) Status post cataract extraction and insertion of intraocular lens of left eye (Chronic 09/09/18) Medical History Palliative care patient Cortical cataract of right eye Nuclear sclerotic cataract of right eye Cortical cataract of left eye Nuclear sclerotic cataract of left eye Family History Daughter No problems noted. Daughter No problems noted. Son Parent-child estrangement nec Social History Smoking/Tobacco Use Status: Former Tobacco Use Tobacco: How many years used: 30 Second Hand Exposure: No Smoking risk assessment performed?: Yes Alcohol Intake: former Drug use: Never Caregiver/Support person: Yes Household members: spouse Housing: house Number of Children: 3 Communication Needs: Hard of Hearing Education Level: vocational Do you need help understanding health information?: Often current occupation: retired from [employer] Pets and animals: No What is your relationship status?: How often do you talk on the phone with friends or family?: three or more times per week How often do you get together with friends or relatives?: three or more times per week Panel score (0-1 are the most socially isolated patients): 2 What type of physical activity do you participate in: walking and irregular exercise Duration: 15-30 minutes/day Frequency: daily Special bethany needs: No Seatbelt use: always Working smoke detector in home: Yes Fire extinguisher in home: Yes Firearms in home: Yes Do you feel safe at home: Yes Do you feel safe in your relationship?: Yes Additional Social history: 2 daughters at bedside, very supportive. POCUS Exam (ED) Limited Soft Tissue Exam DATE OF EXAM: 08/30/24 TIME OF EXAM: 14:02 PROVIDER THAT PERFORMED THE STUDY: Cristo Amaya IS THIS A REPEAT EXAM DURING THIS ENCOUNTER: No LOCATION OF EXAM: Abdominal wall/right side REASON FOR EXAM: Mass and Pain Exam Complete DIFFERENTIAL DIAGNOSES: hernia vs mass INCIDENTAL FINDINGS: dilated bowel
[2024-08-30 14:57] VITALS: BP 108/51; PULSE 78; RESP 14; TEMP 36.2; O2SAT 97
--- NOTE | 2024-08-30 17:38 | PDOC.CMPRO ---
Date of service: 08/30/24 Time of Service: 14:00 Care Management Progress Note Progress Note Text Progress Note Text: CM was asked to meet with Sarbjit and his 2 daughters in the ED. Sarbjit presented to the ED today with abdominal pain. He was found to have a huge mass on CT scan with central necrosis in his abdomen with metastasis to the liver. This was discussed with the patient who SDOH(Care Management) Screening Will the Patient Participate in the Screening?: Unable to obtain
== END 2024-08-30 15:48 | disposition home or self-care (01) ==
PROVIDERS: Emergency Provider Student in an Organized Health Care Education/Training Program; PCP Family Medicine
DX: R19.00 Intra-abdominal and pelvic swelling, mass and lump, unspecified site (principal); R10.84 Generalized abdominal pain; K76.9 Liver disease, unspecified; I25.10 Atherosclerotic heart disease of native coronary artery without angina pectoris; Z95.0 Presence of cardiac pacemaker; Z95.1 Presence of aortocoronary bypass graft; Z98.1 Arthrodesis status
CPT/HCPCS: 00123; 36415; 76705; 80053; 83690; 99283; 99285; 74177; 83735; 85025; 99284; J3490